=== PATIENT | male | born 1940 | race Caucasian/White ===

== ENCOUNTER 2020-04-05 08:24 | Emergency (ER) | payer MEDICARE, OTHER ==
[2020-04-05 08:59] LABS: #Basophils 0.1 thou/uL (0.0-0.2); #Eosinphils 0.2 thou/uL (0.0-0.7); #Lymphocytes 1.9 thou/uL (1.20-3.40); #Monocytes 0.5 thou/uL (0.11-0.59); #Neutrophils 5.2 thou/uL (1.40-6.50); %Basophils 0.9 % (0.0-1.0); %Lymphocytes 24.2 % (21.0-51.0); %Monocytes 5.8 % (0.0-10.0); %Neutrophils 67.1 % (42.0-75.0); Hemoglobin 15.4 g/dL (14.0-18.0); Mean Corpuscular HGB CONC 34.4 g/dL (32.0-36.0); Mean Corpuscular Hemoglobin 32.6 pg (27.0-31.0); Mean Corpuscular Volume 94.7 fL (78.0-98.0); Mean Platelet Volume 8.5 fL (7.4-10.4); Platelet Count 217 thou/uL (130-400); RBC Distribution Width 11.9 % (11.5-14.5); Red Blood Cell (RBC) Count 4.72 mill/uL (4.70-6.10); White Blood Cell (WBC) Count 7.7 thou/uL (4.8-10.8)
--- NOTE | 2020-04-05 09:06 | RAD ---
Chest AP view INDICATION: Jaw pain and chest pain COMPARISON: None FINDINGS: Lungs: The lungs are clear Cardiac silhouette: Mild cardiomegaly with post CABG change Pulmonary vasculature: Normal Pleural spaces: No pleural effusion or pneumothorax is demonstrated. Upper abdomen: Focal eventration of the right hemidiaphragm. Osseous structures: There is scattered degenerative and osteoarthritic change present. Additional findings: None. IMPRESSION: Mild cardiomegaly with post CABG change. No evidence to suggest cardiac decompensation. No acute airs pace consolidation to suggest pneumonia. No pleural effusion or pneumothorax identified.
[2020-04-05 09:21] LABS: ALT (SGPT) 10 U/L (8-55); AST (SGOT) 16 U/L (5-34); Albumin 4.4 g/dL (3.4-4.8); Alkaline Phosphatase 82 U/L (40-110); Anion Gap 16 mmol/L (10-20); BUN (Urea Nitrogen) 26 mg/dL (8.4-25.7); Bilirubin, Total 0.5 mg/dL (0.2-1.2); CK (CPK) 45 U/L (30-200); Calc. Creatinine Clearance 0 mL/min (70-130); Calcium 9.4 mg/dL (7.8-10.44); Carbon Dioxide 26 mmol/L (23-31); Chloride 104 mmol/L (98-107); Estimated GFR-MDRD 37; Globulin 3.4 g/dL (2.4-3.5); Glucose 232 mg/dL (83-110); Lipase 32 U/L (8-78); Potassium 4.9 mmol/L (3.5-5.1); Protein, Total 7.8 g/dL (5.8-8.1); Sodium 141 mmol/L (136-145)
[2020-04-05 09:42] LABS: CKMB 1.8 ng/mL (0-6.6)
[2020-04-05 09:59] LABS: Prothrombin Time 13.4 sec (12.0-14.7)
[2020-04-05 10:00] LABS: PTT 33.8 sec (22.9-36.1)
[2020-04-05] MEDS ORDERED: Enoxaparin Sodium 80 MG/0.8 ML SYRINGE ONE (10:31)
== END 2020-04-05 14:52 | disposition short-term general hospital (02) ==
LOC: ERS 08:24
DX: I21.4 Non-ST elevation (NSTEMI) myocardial infarction (principal); D64.9 Anemia, unspecified; E11.9 Type 2 diabetes mellitus without complications; I10 Essential (primary) hypertension
CPT/HCPCS: 36415; 36416; 71045; 80053; 82550; 82553; 83690; 84484; 85025; 85610; 85730; 93005; 96372; J1650

== ENCOUNTER 2020-04-26 12:55 | Inpatient (IN) | payer OTHER ==
--- NOTE | 2020-04-26 13:48 | RAD ---
Chest one view HISTORY: Dyspnea. Syncope. FINDINGS: Cardiac silhouette is magnified by projection. Pulmonary vasculature are unremarkable. Mediastinum is midline with postoperative changes and aortic calcification. Subtle widespread is linear parenchymal opacity involving each lung is stable and likely related to i nterstitial scarring. No lobar consolidation or evidence of pneumothorax. IMPRESSION : Atherosclerosis. Chronic-type findings are stable. No active cardiopulmonary abnormalities are demonstrated.
[2020-04-26 14:06] LABS: #Basophils 0.1 thou/uL (0.0-0.2); #Eosinphils 0.2 thou/uL (0.0-0.7); #Lymphocytes 1.6 thou/uL (1.20-3.40); #Monocytes 0.5 thou/uL (0.11-0.59); #Neutrophils 5.5 thou/uL (1.40-6.50); %Eosinophils 2.5 % (0.0-10.0); %Lymphocytes 20.8 % (21.0-51.0); %Monocytes 6.2 % (0.0-10.0); %Neutrophils 69.5 % (42.0-75.0); Hemoglobin 14.8 g/dL (14.0-18.0); Mean Corpuscular HGB CONC 34.7 g/dL (32.0-36.0); Mean Corpuscular Hemoglobin 32.3 pg (27.0-31.0); Mean Corpuscular Volume 92.9 fL (78.0-98.0); Mean Platelet Volume 8.5 fL (7.4-10.4); Platelet Count 211 thou/uL (130-400); RBC Distribution Width 11.8 % (11.5-14.5); Red Blood Cell (RBC) Count 4.58 mill/uL (4.70-6.10); White Blood Cell (WBC) Count 7.9 thou/uL (4.8-10.8)
[2020-04-26 14:31] LABS: ALT (SGPT) 14 U/L (8-55); AST (SGOT) 14 U/L (5-34); Albumin 4.3 g/dL (3.4-4.8); Alkaline Phosphatase 74 U/L (40-110); Anion Gap 16 mmol/L (10-20); BUN (Urea Nitrogen) 28 mg/dL (8.4-25.7); Bilirubin, Total 0.6 mg/dL (0.2-1.2); Calc. Creatinine Clearance 0 mL/min (70-130); Calcium 9.6 mg/dL (7.8-10.44); Carbon Dioxide 23 mmol/L (23-31); Chloride 104 mmol/L (98-107); Estimated GFR-MDRD 36; Globulin 3.1 g/dL (2.4-3.5); Glucose 205 mg/dL (83-110); Potassium 4.5 mmol/L (3.5-5.1); Protein, Total 7.4 g/dL (5.8-8.1); Sodium 138 mmol/L (136-145)
[2020-04-26 17:13] LABS: Troponin I 0.027 ng/mL (< 0.028)
[2020-04-26] MEDS ORDERED: Dextrose 50% Abboject 50 ML SYRINGE SLOW IVP PRN (17:40)
[2020-04-26] MEDS ORDERED: Acetaminophen 325 MG TAB PO PRN (17:40)
[2020-04-26] MEDS ORDERED: Ondansetron ODT 4 MG TAB PO PRN (17:40)
[2020-04-26] MEDS ORDERED: Senokot S 8.6-50 MG TAB PO PRN (17:40)
[2020-04-26] MEDS ORDERED: Acetaminophen 650 MG Suppository PR PRN (17:40)
[2020-04-26] MEDS ORDERED: Guaifenesin DM 100-10/5 ML UDCUP PO PRN (17:40)
[2020-04-26] MEDS ORDERED: Ondansetron PF 4 MG/2 ML Vial IVP PRN (17:40)
[2020-04-26] MEDS ORDERED: Dextrose 5% in Water 1,000 ML IV PRN (17:40)
[2020-04-26 18:46] VITALS: BMI 29.0
--- NOTE | 2020-04-26 19:21 | HP ---
PRIMARY CARE PHYSICIAN: EFREN. CHIEF COMPLAINT: Lightheadedness and dizziness. HISTORY OF PRESENT ILLNESS: This is an 79-year-old white male with a known history of coronary artery disease status post CABG x2, who had an NSTEMI back in the beginning of April, manifesting with pain in his jaw. He was transferred from our ER to the [facility] for an elevated troponin. There, he reportedly had a catheterization with angioplasty done. I am not certain if he ended up leaving AMA or they discharged him, but then later he was told he needed to come back to get a stent placed. However, patient did not want to go back to the [place] since they did not place a stent at that time and he was going to go and see his daughter's search engine optimization manager in [place] this coming Wednesday. Yesterday patient in the early evening started getting some lightheadedness and dizziness when he would stand up. He said it was not vertigo like his Meniere's disease usually causes, but he felt like he might be going to pass out, he would also get some upset stomach, mild nausea at that time. If he sat down, it will get a little better and if he lay down the symptoms would go away completely. These symptoms had been persistent since then. They have not been severe. He has not actually passed out. He has had no chest pain, which he does usually have with cardiac issues, but also no jaw pain, which he has had with previous heart attacks. He did break out into a little bit of a sweat today. Eventually, the patient decided to come in to make sure he was not developing another heart attack. In the ER the patient had negative troponin and normal vital signs and so he is being put in observation due to his recent cardiac history. REVIEW OF SYSTEMS: CONSTITUTIONAL: No fevers. No chills. EYES: No double vision or blurred vision. ENT: No congestion, drainage or sore throat. He has chronic poor hearing that comes and goes in intensity, but no specific worsening over the last couple of days. CARDIOVASCULAR: No chest pain. He does get intermittent palpitations. This is chronic for him. PULMONARY: He has an occasional cough from allergies, which is chronic. Nothing worse recently. No wheezing. No shortness of breath. GASTROINTESTINAL: See HPI. No vomiting. No diarrhea or constipation. No abdominal pain. GENITOURINARY: No dysuria or hematuria. MUSCULOSKELETAL: No muscle aches or joint pains. SKIN: No rashes or other lesions that are new that he has noticed. NEUROLOGIC: He has bilateral tingling below his knees on and off that he chalks up to his diabetes. This has not gotten worse recently. No focal weakness or new neurologic symptoms. PAST MEDICAL HISTORY: 1. Coronary artery disease, status post bypass x2. 2. Hyperlipidemia, intolerant to statins. 3. Hypertension. 4. Diabetes mellitus, insulin dependent. 5. Meniere's disease with intermittent vertigo. 6. Anemia. PAST SURGICAL HISTORY: 1. CABG in 2001 with repeat CABG in 2013. 2. Adenoidectomy. 3. Cholecystectomy. 4. Tonsillectomy. SOCIAL HISTORY: The patient has never smoked. No illicit drug use. He drinks a small glass of red wine once a day. He lives by himself. His medical power of litigation attorney associate are his daughters, Brigette Day and Keshia Sampson and he is a full code. 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 FAMILY HISTORY: No significant family medical history. ALLERGIES: 1. TETRACYCLINE CAUSES A RASH. 2. STATINS CAUSE MUSCLE ACHES AND WEAKNESS. CURRENT MEDICATIONS: 1. Aspirin 81 mg daily. 2. Plavix 75 mg daily. 3. NPH insulin dose adjusted based on his blood sugar, usually anywhere between 4 and 8 units 3 times a day. PHYSICAL EXAMINATION: VITAL SIGNS: Blood pressure 125/95, pulse 75, respirations 16, temperature 98.8, O2 saturation 100% on room air. GENERAL: This is a well-developed obese white male, in no acute distress. HEENT: Pupils equal, round, and reactive to light. Oropharynx clear without lesions, erythema, or exudate. NECK: Supple. No lymphadenopathy. No thyroid nodules or enlargement. No JVD. HEART: Regular rate and rhythm. No murmurs, rubs, or gallops. LUNGS: Clear to auscultation bilaterally. No wheezes, crackles, or rhonchi. ABDOMEN: Soft, nontender to palpation. Normoactive bowel sounds. No hepatosplenomegaly or other masses. EXTREMITIES: No clubbing, cyanosis, or edema. SKIN: No rashes or other lesions noted. NEUROLOGIC: The patient moves all extremities equally. No facial droop. His gait is fairly stable. He does take small steps and moves carefully. LABORATORY DATA: CBC without significant abnormalities. Complete metabolic panel is notable for BUN of 28, a creatinine of 1.82, which is up from earlier this month from 1.77, but relatively stable. Glucose of 205. The rest was normal. Troponin was negative x1. EKG done in the emergency room showed likely normal sinus rhythm at 82 beats per minute. The P waves were not easily visible; however, it was regular and given the rate is likely an atrial rhythm. There was some left axis deviation. There was no ST-segment elevation or depression. No T-wave inversions. No other ischemic changes I have reviewed the chest x-ray done in the emergency room along with the radiologist's report does show atherosclerosis and chronic type changes to the lungs, likely related to interstitial scarring without any acute cardiopulmonary process visualized. ASSESSMENT: 1. Presyncopal episodes. These might possibly be cardiac in origin given his recent non-ST elevated myocardial infarction. We will observe the patient in the hospital overnight and check for any elevation in his troponin. We will get orthostatic vital signs and we will consult Cardiology in the morning. The patient if he is stable be able to be followed up in the outpatient clinic or if he has a progression of his symptoms he may need intervention here. [facility] and procedures. 2. Coronary artery disease with 2 previous coronary artery bypass graftings. 3. Hyperlipidemia, unable to take statins. 4. Hypertension. We will find out patient's home blood pressure medications and resume. 5. Chronic kidney disease, uncertain baseline, but he may be near it now. We will recheck his creatinine the morning after fluids given in the emergency room. 6. Diabetes mellitus, insulin dependent. We will start patient on 4 units of NPH three times a day right now with a low insulin sliding scale and we will increase as needed. 7. Gastrointestinal prophylaxis. The patient on Pepcid twice a day. 8. Deep venous thrombosis prophylaxis. The patient on Lovenox and sequential compression devices while in bed. CODE STATUS: The patient is full code. Should he be incapacitated, his daughters would be his medical decision makers. Their names are Brigette Day and Keshia Sampson. Job ID: [id number] [facility]
[2020-04-26 20:10] LABS: Troponin I 0.048 ng/mL (< 0.028)
[2020-04-26] MEDS: Famotidine 20 MG TAB PO SCH (21:09)
[2020-04-26] MEDS: NPH, Human Insulin Isophane 300 UNIT/3 ML VIAL SC SCH (21:09)
[2020-04-26] MEDS: HumaLOG 300 UNITS/3 ML VIAL SC PRN (21:10)
[2020-04-27 04:24] LABS: #Basophils 0.1 thou/uL (0.0-0.2); #Eosinphils 0.2 thou/uL (0.0-0.7); #Lymphocytes 1.6 thou/uL (1.20-3.40); #Monocytes 0.5 thou/uL (0.11-0.59); #Neutrophils 3.4 thou/uL (1.40-6.50); %Eosinophils 3.7 % (0.0-10.0); %Lymphocytes 27.2 % (21.0-51.0); %Monocytes 9.1 % (0.0-10.0); %Neutrophils 59.1 % (42.0-75.0); Hemoglobin 13.7 g/dL (14.0-18.0); Mean Corpuscular HGB CONC 34.9 g/dL (32.0-36.0); Mean Corpuscular Hemoglobin 33.3 pg (27.0-31.0); Mean Corpuscular Volume 95.4 fL (78.0-98.0); Mean Platelet Volume 8.2 fL (7.4-10.4); Platelet Count 191 thou/uL (130-400); RBC Distribution Width 11.8 % (11.5-14.5); Red Blood Cell (RBC) Count 4.11 mill/uL (4.70-6.10); White Blood Cell (WBC) Count 5.7 thou/uL (4.8-10.8)
[2020-04-27 04:48] LABS: Anion Gap 12 mmol/L (10-20); BUN (Urea Nitrogen) 25 mg/dL (8.4-25.7); Calc. Creatinine Clearance 53 mL/min (70-130); Calcium 9.2 mg/dL (7.8-10.44); Carbon Dioxide 24 mmol/L (23-31); Cardiac Risk 6.2 (Less than 4.5); Chloride 107 mmol/L (98-107); Cholesterol 179 mg/dl (< 200 Desired); Estimated GFR-MDRD 43; Glucose 158 mg/dL (83-110); HDL Cholesterol 29 mg/dL (>60 Neg Risk); LDL Cholesterol, Calculated 125 mg/dL; Potassium 4.5 mmol/L (3.5-5.1); Sodium 138 mmol/L (136-145); Triglycerides 123 mg/dL (Less than 150)
--- NOTE | 2020-04-27 07:46 | PDOC.HOSPP ---
- Subjective Encounter Date: 04/27/20 Encounter Time: 10:00 Subjective: Patient with improved lightheadedness but still there. Was able to ambulate with PT. No drop in BP with orthostatics. No jaw pain. - Objective Vital Signs & Weight: Vital Signs (12 hours) Temp Pulse Resp BP BP BP Pulse Ox 04/27/20 04:38 97.7 F 58 L 16 142/66 H 100 04/27/20 00:00 118/63 04/26/20 21:00 97.7 F 73 16 136/74 142/76 H 132/64 100 Weight Weight 220 lb 3.2 oz Result Diagrams: 04/27/20 04:13 04/27/20 04:13 Additional Labs: Accuchecks 04/27/20 06:29 POC Glucose 129 H Hospitalist ROS - Review of Systems Constitutional: denies: fever, sweats Respiratory: denies: cough, shortness of breath Cardiovascular: denies: chest pain, palpitations Gastrointestinal: denies: nausea, vomiting, abdominal pain - Medication Medications: Active Medications Generic Name Dose Route Start Last Admin Trade Name Freq PRN Reason Stop Dose Admin Famotidine 20 mg 04/26/20 21:00 04/26/20 21:09 Famotidine 20 Mg Tab PO 20 mg BID TYSON Administration Insulin Human Lispro 0 units 04/26/20 17:40 04/26/20 21:10 Humalog 300 Units/3 Ml Vial SC 3 unit .BEDTIME SLIDING SC PRN Administration Bedtime Correctional Scale Insulin Human NPH 4 unit 04/26/20 21:00 04/26/20 21:09 Nph, Human Insulin Isophane 300 Unit/3 Ml Vial SC 4 unit TID TYSON Administration - Exam General Appearance: NAD, awake alert ENT: moist mucosa Heart: RRR, no murmur, no gallops, no rubs, normal peripheral pulses Respiratory: CTAB, no wheezes, no rales, no ronchi Gastrointestinal: soft, non-tender, non-distended, normal bowel sounds Psychiatric: normal affect, normal behavior, A&O x 3 Hosp A/P (1) Pre-syncope Status: Acute (2) CAD (coronary artery disease) of artery bypass graft Code(s): I25.810 - ATHEROSCLEROSIS OF CABG W/O ANGINA PECTORIS Status: Chronic (3) HLD (hyperlipidemia) Code(s): E78.5 - HYPERLIPIDEMIA, UNSPECIFIED Status: Chronic (4) HTN (hypertension) Code(s): I10 - ESSENTIAL (PRIMARY) HYPERTENSION Status: Chronic (5) Chronic renal disease Code(s): N18.9 - CHRONIC KIDNEY DISEASE, UNSPECIFIED Status: Chronic Qualifiers: Chronic kidney disease stage: unspecified stage Qualified Code(s): N18.9 - Chronic kidney disease, unspecified (6) Diabetes mellitus, insulin dependent (IDDM), controlled Code(s): NWD9583 - Status: Chronic - Plan Patient's last troponin bumped to indeterminate. Will make NPO and await Dr. Wang's evaluation. Possible stress test vs. repeat cath. [facility]. Creatinine improving some this AM. Blood sugars well controlled. DVT proph: Lovenox GI proph: Famotidine
[2020-04-27 12:02] LABS: SARS-CoV-2 MS2 Positive; SARS-CoV-2 N Gene Negative; SARS-CoV-2 S Gene Negative; SARS-CoV-2 by NAA Not Detected (NotDetected); SARS-CoV-2 orf1ab Negative
[2020-04-27] MEDS: NPH, Human Insulin Isophane 300 UNIT/3 ML VIAL SC SCH ×3 (12:05→20:58)
--- NOTE | 2020-04-27 17:50 | CON ---
DATE OF CONSULTATION: 04/27/2020 REASON FOR CONSULTATION: Angina and coronary artery disease. HISTORY OF PRESENT ILLNESS: Mr. Powell is a pleasant 79-year-old white gentleman who comes to the hospital for lightheadedness, dizziness, and jaw pain. He has significant history of coronary artery disease with bypass twice, the last time was in 2013, he has 2 bypasses. He had a non-STEMI at the beginning of the month; at which point he came to the ER and since he is a and has [facility] privileges, he was transferred to the [place] for further care. Over there, he apparently received a heart catheterization through his left radial artery and they took pictures and were unable to intervene on one of his arteries and he states that he has spent on the table about 3 hours, maybe 4 hours, and then he was told that he had to come back about a month after for repeat catheterization to put actual stent in there. He ended up leaving [facility] as he was not happy with the results. According to the daughter, there was an angioplasty done to one artery, but they could not get a stent placed. It is unclear on the details of this situation. He states that he was about to see a label rewinder in [place], just to have this worked up in a different non-[place] facility. However, he felt lightheaded and a little bit of jaw pain which is the same sensation he had when he had his non-STEMI, so he decided to come in for further evaluation. On my evaluation, he is doing much better. He feels back to baseline. PAST MEDICAL HISTORY: 1. Coronary artery disease, status post bypass several years back in 2001 and again in 2013. Apparently, CABG x2 at that time. 2. Hyperlipidemia. 3. Intolerance to statin drugs. 4. Hypertension. 5. Type 2 diabetes, on insulin. 6. Meniere disease. 7. Anemia. PAST SURGICAL HISTORY: 1. CABG in 2001 and redo CABG in 2014. 2. Adenoidectomy. 3. Cholecystectomy. 4. Tonsillectomy. SOCIAL HISTORY: No tobacco or drugs. Social alcohol use. Lives here in town on his own. Has 2 daughters who live in [place]. FAMILY HISTORY: Noncontributory. OUTPATIENT MEDICATIONS: 1. Aspirin 81 mg a day. 2. Plavix 75 mg a day. 3. NPH insulin. ALLERGIES: 1. TETRACYCLINE CAUSES A RASH. 2. STATINS CAUSE MUSCLE ACHES AND WEAKNESS. REVIEW OF SYSTEMS: A 12-point review of systems was done and was found to be negative other than stated in the History of Present Illness. PHYSICAL EXAMINATION: VITAL SIGNS: Temperature 98.1, pulse 80, respiratory rate 18 saturating 100% on room air, and blood pressure 126/72. GENERAL: Awake, alert, oriented x3, in no distress. HEENT: Normocephalic, atraumatic. NECK: Supple. LUNGS: Clear. CARDIOVASCULAR: S1 and S2. No S3 or S4. No murmurs. No rubs. ABDOMEN: Soft. Positive bowel sounds. EXTREMITIES: No edema. SKIN: Warm and dry. LABORATORY DATA: Laboratory work was reviewed. White count of 7, hemoglobin 14.8, hematocrit 42, and platelet count 211. Chemistries are unremarkable. Creatinine is 1.56. This is actually down from 1.82. Troponin was 0.02, then 0.04, then 0.02 again. Cholesterol total of 179, LDL of 125, and HDL of 29. COVID-19 PCR was not detected. Chest x-ray was reviewed and showed atherosclerosis with chronic type stable findings. ASSESSMENT: 1. Chronic stable angina. 2. Lightheadedness and dizziness. This is his coronary equivalent. 3. Recent non-ST elevation myocardial infarction. 4. Status post coronary artery bypass grafting x2 more recently in 2013. PLAN: 1. Mr. Powell is concerned that he is having symptoms from coronary artery disease as he has let it go for too long in the past and that is how he got a worse trouble than, he feels, he should have been in the past. He would like to be revascularized as he feels his symptoms are getting worse. I would have to agree if this is the same symptoms he had back when he needed bypass and more recently when he had a non-STEMI, more likely he is having symptoms from his coronary artery disease. We spoke with him about at length with risks and benefits of a heart catheterization and possible stenting and he agrees to proceed. He states he is ready. He has had this done very recently. My biggest concern in him would be his renal function. His creatinine was 1.5 when he came in and it is down to 1.3. We will try to hydrate him some as well. 2. We will get an echocardiogram. 3. No longer lightheaded or dizzy. 4. Plan on heart catheterization on Wednesday after hydration. Thank you for letting us to participate in the care of your patient. We will follow. Job ID: [id number]
[2020-04-27] MEDS: Enoxaparin Sodium 40 MG/0.4 ML SYRINGE SC SCH (18:06)
[2020-04-27] MEDS: Clopidogrel Bisulfate 75 MG TAB PO SCH (18:06)
[2020-04-27] MEDS: Aspirin 81 mg Enteric Coated Tablet PO SCH (18:06)
[2020-04-27] MEDS: Famotidine 20 MG TAB PO SCH ×2 (18:06→20:52)
[2020-04-27] MEDS: HumaLOG 300 UNITS/3 ML VIAL SC PRN ×2 (18:08→20:58)
[2020-04-28 04:40] LABS: Anion Gap 14 mmol/L (10-20); BUN (Urea Nitrogen) 34 mg/dL (8.4-25.7); Calc. Creatinine Clearance 51 mL/min (70-130); Calcium 9.7 mg/dL (7.8-10.44); Carbon Dioxide 22 mmol/L (23-31); Chloride 104 mmol/L (98-107); Estimated GFR-MDRD 41; Glucose 200 mg/dL (83-110); Potassium 4.4 mmol/L (3.5-5.1); Sodium 136 mmol/L (136-145)
[2020-04-28] MEDS: HumaLOG 300 UNITS/3 ML VIAL SC PRN ×2 (05:50→12:52)
--- NOTE | 2020-04-28 07:57 | PDOC.HOSPP ---
- Subjective Encounter Date: 04/28/20 Encounter Time: 09:30 Subjective: No new complaints. Light headedness improved but still present. - Objective Vital Signs & Weight: Vital Signs (12 hours) Temp Pulse Resp BP BP Pulse Ox 04/28/20 07:40 98.5 F 60 16 118/59 L 99 04/28/20 03:21 97.6 F 63 16 133/63 100 04/27/20 23:58 97.6 F 67 15 118/56 L 98 Weight Weight 191 lb I&O: 04/27/20 04/28/20 04/29/20 06:59 06:59 06:59 Intake Total 480 Output Total 1700 Balance -1220 Result Diagrams: 04/27/20 04:13 04/28/20 03:59 Additional Labs: Accuchecks 04/28/20 04/27/20 04/27/20 05:38 20:06 17:36 POC Glucose 191 H 267 H 170 H 04/27/20 04/26/20 11:13 13:11 POC Glucose 97 294 H Radiology Reviewed by me: Yes (ECHO with preserved EF, diastolic function indeterminate) Hospitalist ROS - Review of Systems Constitutional: denies: fever, chills Respiratory: denies: cough, shortness of breath Cardiovascular: denies: chest pain, palpitations Gastrointestinal: denies: nausea, vomiting - Medication Medications: Active Medications Generic Name Dose Route Start Last Admin Trade Name Freq PRN Reason Stop Dose Admin Aspirin 81 mg 04/27/20 09:00 04/27/20 18:06 Aspirin 81 Mg Enteric Coated Tablet PO 81 mg DAILY TYSON Administration Clopidogrel Bisulfate 75 mg 04/27/20 09:00 04/27/20 18:06 Clopidogrel Bisulfate 75 Mg Tab PO 75 mg DAILY TYSON Administration Enoxaparin Sodium 40 mg 04/27/20 09:00 04/27/20 18:06 Enoxaparin Sodium 40 Mg/0.4 Ml Syringe SC 40 mg 0900 TYSON Administration Famotidine 20 mg 04/26/20 21:00 04/27/20 20:52 Famotidine 20 Mg Tab PO Not Given BID TYSON Insulin Human Lispro 0 units 04/26/20 17:40 04/28/20 05:50 Humalog 300 Units/3 Ml Vial SC 2 unit .MILD SLIDING SCALE PRN Administration Mild Correctional Scale Insulin Human Lispro 0 units 04/26/20 17:40 04/27/20 20:58 Humalog 300 Units/3 Ml Vial SC 3 unit .BEDTIME SLIDING SC PRN Administration Bedtime Correctional Scale Insulin Human NPH 4 unit 04/26/20 21:00 04/27/20 20:58 Nph, Human Insulin Isophane 300 Unit/3 Ml Vial SC 4 unit TID TYSON Administration - Exam General Appearance: NAD, awake alert ENT: moist mucosa Heart: RRR, no murmur, no gallops, no rubs Respiratory: CTAB, no wheezes, no rales, no ronchi Gastrointestinal: soft, non-tender, non-distended, normal bowel sounds Psychiatric: normal affect, normal behavior, A&O x 3 Hosp A/P (1) Pre-syncope Status: Acute (2) CAD (coronary artery disease) of artery bypass graft Code(s): I25.810 - ATHEROSCLEROSIS OF CABG W/O ANGINA PECTORIS Status: Chronic (3) HLD (hyperlipidemia) Code(s): E78.5 - HYPERLIPIDEMIA, UNSPECIFIED Status: Chronic (4) HTN (hypertension) Code(s): I10 - ESSENTIAL (PRIMARY) HYPERTENSION Status: Chronic (5) Chronic renal disease Code(s): N18.9 - CHRONIC KIDNEY DISEASE, UNSPECIFIED Status: Chronic Qualifiers: Chronic kidney disease stage: unspecified stage Qualified Code(s): N18.9 - Chronic kidney disease, unspecified (6) Diabetes mellitus, insulin dependent (IDDM), controlled Code(s): YXS2103 - Status: Chronic - Plan Patient's last troponin bumped to indeterminate. Dr. Wang concerned that pat ient's dizziness is an anginal equivalent. Plan on cath on Wednesday. Attempt to obtain records from the [place]. Creatinine back up today. Will give gentle fluids in preparation for cath tomorrow. Blood sugars well controlled. DVT proph: Lovenox GI proph: Famotidine
[2020-04-28] MEDS ORDERED: Sodium Chloride 0.9% 1,000 ML IV SCH (08:00)
[2020-04-28] MEDS: Famotidine 20 MG TAB PO SCH ×2 (09:54→20:39)
[2020-04-28] MEDS: NPH, Human Insulin Isophane 300 UNIT/3 ML VIAL SC SCH ×3 (09:55→20:39)
[2020-04-28] MEDS: Clopidogrel Bisulfate 75 MG TAB PO SCH (09:55)
[2020-04-28] MEDS: Aspirin 81 mg Enteric Coated Tablet PO SCH (09:55)
[2020-04-28] MEDS: Enoxaparin Sodium 40 MG/0.4 ML SYRINGE SC SCH (09:55)
--- NOTE | 2020-04-28 16:21 | PDOC.CPN ---
- Subjective Date: 04/28/20 Time: 16:20 Interval history: No new issues. No more dizziness, no more chest pain. - Review of Systems General: denies: fever/chills, weight/appetite/sleep changes, night sweats, fatigue Respiratory: denies: cough, congestion, shortness of breath, exercise intolerance Cardiovascular: denies: chest pain, palpitation, edema, paroxysmal nocturnal dyspnea, orthopnea Gastrointestinal: denies: nausea, vomiting, diarrhea, constipation, abd pain, GI bleeding Musculoskeletal: denies: pain, tenderness, stiffness, swelling, arthriti s/arthralgias Neurological: denies: numbness, syncope, seizure, weakness - Objective Allergies/Adverse Reactions: Allergies Allergy/AdvReac Type Severity Reaction Status Date / Time tetracycline Allergy Verified 04/26/20 18:03 Visit Medications: Current Medications Acetaminophen (Acetaminophen 325 Mg Tab) 650 mg PO Q4H PRN PRN Reason: Headache/Fever/Mild Pain (1-3) Acetaminophen (Acetaminophen 650 Mg Suppository) 650 mg DC Q4H PRN PRN Reason: Headache/Fever/Mild Pain (1-3) Aspirin (Aspirin 81 Mg Enteric Coated Tablet) 81 mg PO DAILY [facility] Last Admin: 04/28/20 09:55 Dose: 81 mg Documented by: Clopidogrel Bisulfate (Clopidogrel Bisulfate 75 Mg Tab) 75 mg PO DAILY [facility] Last Admin: 04/28/20 09:55 Dose: 75 mg Documented by: Dextrose/Water (Dextrose 50% Abboject 50 Ml Syringe) 25 gm SLOW IVP PRN PRN PRN Reason: Hypoglycemia Enoxaparin Sodium (Enoxaparin Sodium 40 Mg/0.4 Ml Syringe) 40 mg SC 0900 [facility] Last Admin: 04/28/20 09:55 Dose: 40 mg Documented by: Famotidine (Famotidine 20 Mg Tab) 20 mg PO BID [facility] Last Admin: 04/28/20 09:54 Dose: 20 mg Documented by: Glucagon (Glucagon 1 Mg/Ml Vial) 1 mg IM PRN PRN PRN Reason: Hypoglycemia Guaifenesin/Dextromethorphan (Guaifenesin Dm 100-10/5 Ml Udcup) 15 ml PO Q4H PRN PRN Reason: Cough Dextrose/Water (D5w) 1,000 mls @ 0 mls/hr IV .Q0M PRN PRN Reason: Hypoglycemia Sodium Chloride (Normal Saline 0.9%) 1,000 mls @ 50 mls/hr IV .Q20H [facility] Last Admin: 04/28/20 10:11 Dose: 1,000 mls Documented by: Insulin Human Lispro (Humalog 300 Units/3 Ml Vial) 0 units SC .MILD SLIDING SCALE PRN PRN Reason: Mild Correctional Scale Last Admin: 04/28/20 12:52 Dose: 3 unit Documented by: Insulin Human Lispro (Humalog 300 Units/3 Ml Vial) 0 units SC .BEDTIME SLIDING SC PRN PRN Reason: Bedtime Correctional Scale Last Admin: 04/27/20 20:58 Dose: 3 unit Documented by: Insulin Human NPH (Nph, Human Insulin Isophane 300 Unit/3 Ml Vial) 4 unit SC TID [facility] Last Admin: 04/28/20 14:44 Dose: 4 unit Documented by: Ondansetron HCl (Ondansetron Odt 4 Mg Tab) 4 mg PO Q6H PRN PRN Reason: Nausea/Vomiting Ondansetron HCl (Ondansetron Pf 4 Mg/2 Ml Vial) 4 mg IVP Q6H PRN PRN Reason: Nausea/Vomiting Senna/Docusate Sodium (Senokot S 8.6-50 Mg Tab) 2 tab PO BID PRN PRN Reason: Constipation Vital Signs & Weight: Vital Signs Temp Pulse Resp BP BP Pulse Ox 04/28/20 12:52 98.8 F 68 16 152/70 H 99 04/28/20 09:55 100 04/28/20 07:40 98.5 F 60 16 118/59 L 99 Weight 191 lb - Physical Exam General: alert & oriented x3 HEENT: mucus membranes moist Neck: supple neck Cardiac: regular rate and rhythm, no murmur Lungs: normal breath sounds Neuro: no lateralizing findings Abdomen: active bowel sounds Extremities: no edema Skin: clear Musculoskeletal: no pain - Labs Result Diagrams: 04/27/20 04:13 04/28/20 03:59 Troponin/CKMB Troponin I 0.028 ng/mL (< 0.028) 04/27/20 14:05 - Telemetry Sinus rhythms and dysrhythmias: sinus rhythm - Assessment/Plan Assessment/Plan: 1. Chronic stable angina 2. Recent NSTEMI with incomplete revascularization. 3. S/P CABG x 2 in 2013 PLAN: - Will do [facility] tomorrow to assess any further need for revascularization.
[2020-04-28] MEDS ORDERED: Communication Order-Pharmacy FS SCH (16:30)
[2020-04-29] MEDS ORDERED: Sodium Chloride 0.9% 500 ML IV SCH (00:01)
[2020-04-29 04:24] LABS: #Basophils 0.1 thou/uL (0.0-0.2); #Eosinphils 0.1 thou/uL (0.0-0.7); #Lymphocytes 1.2 thou/uL (1.20-3.40); #Monocytes 0.5 thou/uL (0.11-0.59); #Neutrophils 3.3 thou/uL (1.40-6.50); %Basophils 1.3 % (0.0-1.0); %Eosinophils 2.8 % (0.0-10.0); %Lymphocytes 23.1 % (21.0-51.0); %Monocytes 10.1 % (0.0-10.0); %Neutrophils 62.7 % (42.0-75.0); Hemoglobin 13.8 g/dL (14.0-18.0); Mean Corpuscular HGB CONC 34.6 g/dL (32.0-36.0); Mean Corpuscular Hemoglobin 32.7 pg (27.0-31.0); Mean Corpuscular Volume 94.7 fL (78.0-98.0); Mean Platelet Volume 8.5 fL (7.4-10.4); Platelet Count 178 thou/uL (130-400); RBC Distribution Width 11.7 % (11.5-14.5); Red Blood Cell (RBC) Count 4.22 mill/uL (4.70-6.10); White Blood Cell (WBC) Count 5.2 thou/uL (4.8-10.8)
[2020-04-29 04:45] LABS: Anion Gap 13 mmol/L (10-20); BUN (Urea Nitrogen) 31 mg/dL (8.4-25.7); Calc. Creatinine Clearance 43 mL/min (70-130); Calcium 8.8 mg/dL (7.8-10.44); Carbon Dioxide 21 mmol/L (23-31); Chloride 107 mmol/L (98-107); Estimated GFR-MDRD 40; Glucose 180 mg/dL (83-110); Potassium 4.4 mmol/L (3.5-5.1); Sodium 137 mmol/L (136-145)
[2020-04-29] MEDS: Clopidogrel Bisulfate 75 MG TAB PO SCH (05:40)
[2020-04-29] MEDS: Aspirin 81 mg Enteric Coated Tablet PO SCH (05:40)
[2020-04-29] MEDS: Famotidine 20 MG TAB PO SCH ×2 (05:40→20:45)
[2020-04-29] MEDS: NPH, Human Insulin Isophane 300 UNIT/3 ML VIAL SC SCH ×3 (05:41→20:46)
--- NOTE | 2020-04-29 07:38 | PDOC.HOSPP ---
- Subjective Encounter Date: 04/29/20 Encounter Time: 09:00 Subjective: Patient feeling better. Less lightheadedness. Awaiting cath this AM. - Objective Vital Signs & Weight: Vital Signs (12 hours) Temp Pulse Resp BP BP Pulse Ox 04/29/20 04:00 98.3 F 53 L 15 145/66 H 96 04/28/20 20:00 98.2 F 68 12 124/60 97 Weight Weight 218 lb 4.8 oz I&O: 04/28/20 04/29/20 04/30/20 06:59 06:59 06:59 Intake Total 480 2660 Output Total 1700 1000 Balance -1220 1660 Result Diagrams: 04/29/20 04:14 04/29/20 04:14 Additional Labs: Accuchecks 04/29/20 04/28/20 04/28/20 05:54 20:26 16:54 POC Glucose 137 H 200 H 105 H 04/28/20 11:41 POC Glucose 217 H Hospitalist ROS - Review of Systems Constitutional: denies: fever, chills Respiratory: denies: cough, shortness of breath Cardiovascular: denies: chest pain, palpitations Gastrointestinal: denies: nausea, vomiting, abdominal pain - Medication Medications: Active Medications Generic Name Dose Route Start Last Admin Trade Name Freq PRN Reason Stop Dose Admin Aspirin 81 mg 04/27/20 09:00 04/29/20 05:40 Aspirin 81 Mg Enteric Coated Tablet PO 81 mg DAILY TYSON Administration Clopidogrel Bisulfate 75 mg 04/27/20 09:00 04/29/20 05:40 Clopidogrel Bisulfate 75 Mg Tab PO 75 mg DAILY TYSON Administration Famotidine 20 mg 04/26/20 21:00 04/29/20 05:40 Famotidine 20 Mg Tab PO 20 mg BID TYSON Administration Insulin Human Lispro 0 units 04/26/20 17:40 04/28/20 12:52 Humalog 300 Units/3 Ml Vial SC 3 unit .MILD SLIDING SCALE PRN Administration Mild Correctional Scale Insulin Human Lispro 0 units 04/26/20 17:40 04/27/20 20:58 Humalog 300 Units/3 Ml Vial SC 3 unit .BEDTIME SLIDING SC PRN Administration Bedtime Correctional Scale Insulin Human NPH 4 unit 04/26/20 21:00 04/29/20 05:41 Nph, Human Insulin Isophane 300 Unit/3 Ml Vial SC Not Given TID TYSON - Exam General Appearance: NAD, awake alert ENT: moist mucosa Heart: RRR, no murmur, no gallops, no rubs Respiratory: CTAB, no wheezes, no rales, no ronchi Gastrointestinal: soft, non-tender, non-distended, normal bowel sounds Psychiatric: normal affect, normal behavior, A&O x 3 Hosp A/P (1) Pre-syncope Status: Acute (2) CAD (coronary artery disease) of artery bypass graft Code(s): I25.810 - ATHEROSCLEROSIS OF CABG W/O ANGINA PECTORIS Status: Chronic (3) HLD (hyperlipidemia) Code(s): E78.5 - HYPERLIPIDEMIA, UNSPECIFIED Status: Chronic (4) HTN (hypertension) Code(s): I10 - ESSENTIAL (PRIMARY) HYPERTENSION Status: Chronic (5) Chronic renal disease Code(s): N18.9 - CHRONIC KIDNEY DISEASE, UNSPECIFIED Status: Chronic Qualifiers: Chronic kidney disease stage: unspecified stage Qualified Code(s): N18.9 - Chronic kidney disease, unspecified (6) Diabetes mellitus, insulin dependent (IDDM), controlled Code(s): [id number] - Status: Chronic - Plan Patient's last troponin bumped to indeterminate. Dr. Wang concerned that patient's dizziness is an anginal equivalent. Plan on cath today. Attempt to obtain records from the [place]. Creatinine stable on fluids prior to cath today. Blood sugars well controlled. DVT proph: Lovenox GI proph: Famotidine D/C once cleared by cardiology.
[2020-04-29] MEDS ORDERED: Midazolam HCl 2 mg/2 ml Vial ONE (09:35)
[2020-04-29] MEDS ORDERED: Fentanyl 100 MCG/2 ML VIAL ONE (09:35)
[2020-04-29] MEDS ORDERED: Iopamidol 370 76% 100 ML VIAL ONE (10:07)
[2020-04-29] MEDS: Sodium Chloride 0.9% 1,000 ML IV SCH (15:13)
[2020-04-29] MEDS: HumaLOG 300 UNITS/3 ML VIAL SC PRN (17:59)
[2020-04-30] MEDS: Sodium Chloride 0.9% 1,000 ML IV SCH ×2 (04:46→17:47)
--- NOTE | 2020-04-30 07:29 | PDOC.HOSPP ---
- Subjective Encounter Date: 04/30/20 Encounter Time: 14:00 Subjective: Patient feeling well this morning. Ready to go home. However, had a second degree block that led to a [address] Wang informed and discharge put on hold. - Objective Vital Signs & Weight: Vital Signs (12 hours) Temp Pulse Resp BP BP Pulse Ox 04/30/20 03:53 98.2 F 52 L 12 107/56 L 92 L 04/29/20 19:49 97.6 F 67 18 125/68 98 Weight Weight 217 lb 1.6 oz I&O: 04/29/20 04/30/20 05/01/20 06:59 06:59 06:59 Intake Total 2660 500 Output Total 1000 850 Balance 1660 -350 Result Diagrams: 04/29/20 04:14 04/29/20 04:14 Additional Labs: Accuchecks 04/30/20 04/29/20 04/29/20 05:38 20:12 16:51 POC Glucose 129 H 194 H 280 H 04/29/20 10:45 POC Glucose 146 H Hospitalist ROS - Review of Systems Constitutional: denies: fever, chills, weakness Respiratory: denies: cough, shortness of breath Cardiovascular: denies: chest pain, palpitations Gastrointestinal: denies: nausea, vomiting, abdominal pain - Medication Medications: Active Medications Generic Name Dose Route Start Last Admin Trade Name Freq PRN Reason Stop Dose Admin Aspirin 81 mg 04/27/20 09:00 04/29/20 05:40 Aspirin 81 Mg Enteric Coated Tablet PO 81 mg DAILY TYSON Administration Clopidogrel Bisulfate 75 mg 04/27/20 09:00 04/29/20 05:40 Clopidogrel Bisulfate 75 Mg Tab PO 75 mg DAILY TYSON Administration Famotidine 20 mg 04/26/20 21:00 04/29/20 20:45 Famotidine 20 Mg Tab PO 20 mg BID TYSON Administration Sodium Chloride 1,000 mls @ 75 mls/hr 04/29/20 15:15 04/30/20 04:46 Normal Saline 0.9% IV Not Given .[id number] TYSON Insulin Human Lispro 0 units 04/26/20 17:40 04/29/20 17:59 Humalog 300 Units/3 Ml Vial SC 4 unit .MILD SLIDING SCALE PRN Administration Mild Correctional Scale Insulin Human Lispro 0 units 04/26/20 17:40 04/27/20 20:58 Humalog 300 Units/3 Ml Vial SC 3 unit .BEDTIME SLIDING SC PRN Administration Bedtime Correctional Scale Insulin Human NPH 4 unit 04/26/20 21:00 04/29/20 20:46 Nph, Human Insulin Isophane 300 Unit/3 Ml Vial SC 4 unit TID TYSON Administration - Exam General Appearance: NAD, awake alert ENT: moist mucosa Heart: RRR, no murmur, no gallops, no rubs Respiratory: CTAB, no wheezes, no rales, no ronchi Gastrointestinal: soft, non-tender, non-distended, normal bowel sounds Psychiatric: normal affect, normal behavior, A&O x 3 Hosp A/P (1) Pre-syncope Status: Acute (2) CAD (coronary artery disease) of artery bypass graft Code(s): I25.810 - ATHEROSCLEROSIS OF CABG W/O ANGINA PECTORIS Status: Chronic (3) HLD (hyperlipidemia) Code(s): E78.5 - HYPERLIPIDEMIA, UNSPECIFIED Status: Chronic (4) HTN (hypertension) Code(s): I10 - ESSENTIAL (PRIMARY) HYPERTENSION Status: Chronic (5) Chronic renal disease Code(s): N18.9 - CHRONIC KIDNEY DISEASE, UNSPECIFIED Status: Chronic Qualifiers: Chronic kidney disease stage: unspecified stage Qualified Code(s): N18.9 - Chronic kidney disease, unspecified (6) Diabetes mellitus, insulin dependent (IDDM), controlled Code(s): [id number] - Status: Chronic (7) Heart block AV second degree Code(s): I44.1 - ATRIOVENTRICULAR BLOCK, SECOND DEGREE Status: Acute - Plan Patient's last troponin bumped to indeterminate. Dr. Wang concerned that patient's dizziness is an anginal equivalent. Cath yesterday without any lesions that would benefit from stents. Continued medical management. Creatinine stable on fluids prior to cath today. Blood sugars well controlled. DVT proph: Lovenox GI proph: Famotidine Plan for pacemaker tomorrow.
[2020-04-30] MEDS: Clopidogrel Bisulfate 75 MG TAB PO SCH (08:40)
[2020-04-30] MEDS: Famotidine 20 MG TAB PO SCH (08:40)
[2020-04-30] MEDS: Aspirin 81 mg Enteric Coated Tablet PO SCH (08:40)
[2020-04-30] MEDS: NPH, Human Insulin Isophane 300 UNIT/3 ML VIAL SC SCH ×3 (08:41→21:01)
[2020-04-30] MEDS: HumaLOG 300 UNITS/3 ML VIAL SC PRN (12:15)
--- NOTE | 2020-04-30 17:21 | PDOC.CPN ---
- Subjective Date: 04/30/20 Time: 17:17 Interval history: He is doing well. Continues to have episodes of lightheadedness, and skips beats. - Review of Systems General: denies: fever/chills, weight/appetite/sleep changes, night sweats, fatigue Respiratory: denies: cough, congestion, shortness of breath, exercise intolerance Cardiovascular: denies: chest pain, palpitation, edema, paroxysmal nocturnal dys pnea, orthopnea Gastrointestinal: denies: nausea, vomiting, diarrhea, constipation, abd pain, GI bleeding Musculoskeletal: denies: pain, tenderness, stiffness, swelling, arthritis/arthralgias Neurological: denies: numbness, syncope, seizure, weakness - Objective Allergies/Adverse Reactions: Allergies Allergy/AdvReac Type Severity Reaction Status Date / Time tetracycline Allergy Verified 04/26/20 18:03 Visit Medications: Current Medications Acetaminophen (Acetaminophen 325 Mg Tab) 650 mg PO Q4H PRN PRN Reason: Headache/Fever/Mild Pain (1-3) Acetaminophen (Acetaminophen 650 Mg Suppository) 650 mg MI Q4H PRN PRN Reason: Headache/Fever/Mild Pain (1-3) Aspirin (Aspirin 81 Mg Enteric Coated Tablet) 81 mg PO DAILY [facility] Last Admin: 04/30/20 08:40 Dose: 81 mg Documented by: Clopidogrel Bisulfate (Clopidogrel Bisulfate 75 Mg Tab) 75 mg PO DAILY [facility] Last Admin: 04/30/20 08:40 Dose: 75 mg Documented by: Dextrose/Water (Dextrose 50% Abboject 50 Ml Syringe) 25 gm SLOW IVP PRN PRN PRN Reason: Hypoglycemia Famotidine (Famotidine 20 Mg Tab) 20 mg PO DAILY [facility] Glucagon (Glucagon 1 Mg/Ml Vial) 1 mg IM PRN PRN PRN Reason: Hypoglycemia Guaifenesin/Dextromethorphan (Guaifenesin Dm 100-10/5 Ml Udcup) 15 ml PO Q4H PRN PRN Reason: Cough Dextrose/Water (D5w) 1,000 mls @ 0 mls/hr IV .Q0M PRN PRN Reason: Hypoglycemia Sodium Chloride (Normal Saline 0.9%) 1,000 mls @ 75 mls/hr IV .[id number] [facility] Last Admin: 04/30/20 04:46 Dose: Not Given Documented by: Insulin Human Lispro (Humalog 300 Units/3 Ml Vial) 0 units SC .MILD SLIDING SCALE PRN PRN Reason: Mild Correctional Scale Last Admin: 04/30/20 12:15 Dose: 3 unit Documented by: Insulin Human Lispro (Humalog 300 Units/3 Ml Vial) 0 units SC .BEDTIME SLIDING SC PRN PRN Reason: Bedtime Correctional Scale Last Admin: 04/27/20 20:58 Dose: 3 unit Documented by: Insulin Human NPH (Nph, Human Insulin Isophane 300 Unit/3 Ml Vial) 4 unit SC TID TYSON Last Admin: 04/30/20 16:08 Dose: 4 unit Documented by: Ondansetron HCl (Ondansetron Odt 4 Mg Tab) 4 mg PO Q6H PRN PRN Reason: Nausea/Vomiting Ondansetron HCl (Ondansetron Pf 4 Mg/2 Ml Vial) 4 mg IVP Q6H PRN PRN Reason: Nausea/Vomiting Senna/Docusate Sodium (Senokot S 8.6-50 Mg Tab) 2 tab PO BID PRN PRN Reason: Constipation Sodium Chloride (Flush - Normal Saline 10 Ml Syringe) 10 ml IVF Q12HR TYSON Sodium Chloride (Flush - Normal Saline 10 Ml Syringe) 10 ml IVF PRN PRN PRN Reason: Saline Flush Vital Signs & Weight: Vital Signs Temp Pulse Resp BP BP Pulse Ox 04/30/20 16:00 98.3 F 60 12 110/54 L 98 04/30/20 12:10 97.8 F 71 16 140/63 99 04/30/20 07:45 97.5 F L 55 L 16 136/65 100 Weight 217 lb 1.6 oz - Physical Exam General: alert & oriented x3 HEENT: mucus membranes moist Neck: supple neck Cardiac: regular rate and rhythm Lungs: normal breath sounds Neuro: grossly intact Abdomen: active bowel sounds Extremities: no edema Skin: clear Musculoskeletal: no pain - Labs Result Diagrams: 04/29/20 04:14 04/29/20 04:14 Troponin/CKMB Troponin I 0.028 ng/mL (< 0.028) 04/27/20 14:05 - Telemetry Sinus rhythms and dysrhythmias: sinus rhythm - Assessment/Plan Assessment/Plan: 1. Chronic stable angina 2. Recent NSTEMI. 3. S/P CABG x 2 in 2013 4. High degree AV block. 2-1 AV block. PLAN: - Widely patent bypass grafts and MONZON. Problem is diffusely diseased distal vessels. Likely target for PCI was Diagonal branch but this is a 2.0 cm vessel. Small and better treated medically in my opinion. - On telemetry he had an episode of a 4.5 sec pause but he was sleeping, he also had 2-1 AV block and looks like AV dissociation while during the day while awake. This may explain his dizziness before coming in and is an indication for a PPM. I spoke with him about his and explained procedure and he agrees tro proceed.
[2020-05-01] MEDS ORDERED: CEFAZOLIN 1 GM VIAL ONE (06:34)
[2020-05-01] MEDS ORDERED: Gentamicin 80 MG/2 ML VIAL ONE (06:34)
[2020-05-01] MEDS: Sodium Chloride 0.9% 1,000 ML IV SCH (06:35)
[2020-05-01] MEDS ORDERED: Lidocaine 1% (PF) 30 ML VIAL ONE ×2 (06:47→07:22)
[2020-05-01] MEDS ORDERED: Midazolam HCl 2 mg/2 ml Vial ONE (07:20)
[2020-05-01] MEDS: Clopidogrel Bisulfate 75 MG TAB PO SCH (07:55)
[2020-05-01] MEDS: Aspirin 81 mg Enteric Coated Tablet PO SCH (07:55)
[2020-05-01] MEDS: NPH, Human Insulin Isophane 300 UNIT/3 ML VIAL SC SCH (07:56)
[2020-05-01] MEDS ORDERED: Famotidine 20 MG TAB PO SCH (09:00)
--- NOTE | 2020-05-01 10:23 | RAD ---
Chest one view HISTORY: Cardiac device placement. COMPARISON: 04/26/2020. FINDINGS: Cardiac silhouette is magnified by projection. Pulmonary vasculature is unremarkable. Mediastinum is slightly shifted rightward with patient rotation. Postoperative changes and aortic john cification. A new dual lead left subclavian cardiac electronic device is in place with tips overlying the right a trium and right ventricle. No evidence of pneumothorax. No lobar consolidation. There are degenerative changes of each shoulder. IMPRESSION : Left subclavian cardiac pacer is in good position. Chronic findings are stable.
[2020-05-01 11:48] VITALS: TEMP 98.3
--- NOTE | 2020-05-01 12:26 | CCLSPC ---
INDICATION FOR PROCEDURE: An 79-year-old patient with second-degree heart block type 2 with symptoms. He has had episodes of syncope. He has had a pause more than 4 seconds. He was advised to undergo dual chamber pacemaker insertion. PROCEDURE IN DETAIL: He was taken to the cardiac lab courier where he underwent the procedure today without difficulties or complications. He was implanted with a dual chamber pacemaker from [employer] and [place] [address] MRI compatible device with 2 screw-in leads, 1 in the atrium and 1 in the ventricle. There were no complications or difficulties encountered. He was given 2 mg of IV versed for the procedure and throughout the procedure was monitored by an independent observer present for heart rate, blood pressure, and O2 saturation remained stable throughout the procedure. Pacemaker was set with the upper rate of 120, the lower rate was set at 60. Job ID: [id number]
[2020-05-01] MEDS: HumaLOG 300 UNITS/3 ML VIAL SC PRN (12:57)
[2020-05-01 15:26] VITALS: BP 135/64
--- NOTE | 2020-05-01 17:28 | PQF ---
CLINICAL DOCUMENTATION CLARIFICATION FORM: Dear Dr. Lim Date: 05/01/20 Please exercise your independent, professional judgment in responding to the clarification form. Clinical indicators are provided on the bottom of this form for your review. Please check appropriate box(es): [ ] Acute Renal Failure / ANGELA [ ] Acute on Chronic Renal Failure please specify Stage of CKD (see below) [ x ] CKD without ARF/ANGELA please specify Stage of CKD_III [ ] ESRD [ ] Other diagnosis [ ] Unable to determine In addition, please specify: Present on Admission (POA): [ x ] Yes [ ] No [ ] Unable to determine For continuity of documentation, please document condition throughout progress notes and discharge summary. Thank You. To be completed by CDI/Coding staff for physician review: CLINICAL INDICATORS - SIGNS / SYMPTOMS / LABS / RESULTS AND LOCATION IN MR 04/27: PN (Matthew) Plan: Creatinine improving some this am. 04/27: Consult (Kathleen) Lab: Creatinine is 1.56. This is actually down from 1.82 04/28 PN (Matthew) Plan: Creatinine back up today. Will give gently fluids in preparation for cath tomorrow. BUN/Creat 04/26: 28 / 1.82 BUN/Creat 04/27: 25 / 1.56 BUN/ Creat 04/28: 31 / 1.67 GFR 04/26: 36 GFR 04/27: 43 GFR 04/28: 41 GFR 04/29: 40 RISK FACTORS / RESULTS AND LOCATION IN MR h/o CAD (H&P) h/o HTN (H&P) h/o Diabetes (H&P) h/o CKD (H&P) TREATMENTS / RESULTS AND LOCATION IN MR Serial labs IV fluids (ER-present) National Kidney Foundation Guidelines for CKD Staging Stage I Kidney damage with normal or increased GFR GFR > 90 Stage II Kidney damage with mildly decreased GFR GFR 60-89 Stage III Kidney damage with moderately decreased GFR GFR 30-59 Stage IV Kidney damage with severely decreased GFR GFR 16-29 Stage V Kidney failure GFR<15 ESRD End Stage Renal Disease On dialysis Acute Renal Failure/Acute Kidney Failure defined as: Increases in SCr by (>) 0.3 mg/dl within 48 hours OR- Increases in SCr by (>) 1.5 times baseline, known or presumed to have occurred within the prior 7 days OR- Urine volume < 0.5 ml/kg/hour for 6 hours (KDIGO supplement 2012 for RIFLE/TAMIKO criteria) CDS Signature: Betsy Henning RN Phone #: [phone] Date: 05/01/20 This is a permanent part of the Medical Record [facility]
--- NOTE | 2020-05-01 19:21 | DIS ---
DATE OF ADMISSION: 04/27/2020 DATE OF DISCHARGE: 05/01/2020 DISCHARGE DIAGNOSES: 1. 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 2. Syncopal episode secondarily to #1. 3. Coronary artery disease, chronic and stable. 4. Hypertension, stable. 5. Diabetes mellitus type 2, insulin requiring, stable. 6. Chronic kidney disease, stage 3. CONSULTATIONS: 1. Charles Wang MD with Cardiology Service. 2. Cherry Avalos MD with Cardiology Service. PERTINENT LABORATORY AND X-RAY FINDINGS: Creatinine ranged between 1.56 to 1.82 and estimated GFR ranged between 36 to 43. Troponin I ranged between 0.020 to 0.048. Total cholesterol 179, triglycerides 123, HDL 29, and LDL 125. Portable chest x-ray dated 04/26/2020, showed no acute cardiopulmonary process. Left heart catheterization dated 04/29/2020, showed multivessel coronary artery disease with recommendations for medical management. A 2D transthoracic echocardiogram dated 04/28/2020, showed ejection fraction of 50% to 55%. Diastolic function indeterminate. Technically limited exam. Portable chest x-ray dated 05/01/2020, showed left subclavian cardiac pacemaker device and appropriate positioning. No evidence for pneumothorax. HOSPITAL COURSE: The patient initially presented with lightheadedness and dizziness in the context of known coronary artery disease, status post coronary artery bypass grafting x2 vessels. The patient underwent metabolic and radiographic evaluation as well as evaluation for syncopal episodes. The patient underwent evaluation by the Cardiology Service, undergoing a cardiac catheterization showing multivessel coronary artery disease. However, the recommendations are for medical management. The patient was noted on telemetry monitoring with second-degree AV block type 2, at which point, the patient was deemed an appropriate candidate to undergo dual chamber pacemaker placement. The patient underwent the procedure on 05/01/2020 without complication. The patient overall remained clinically stable during the hospital course tolerating regular oral intake with stable vital signs. I have examined the patient at the time of discharge and discussed followup instructions. The patient verbalizes understanding and agreement, ready for discharge on 05/01/2020. DISCHARGE MEDICATIONS: 1. Enteric-coated aspirin 81 mg p.o. daily. 2. Plavix 75 mg p.o. daily. 3. Norvasc 2.5 mg p.o. daily. 4. Humulin N 4 to 8 units subcutaneously before meals and at bedtime. FOLLOWUP: The patient to follow up with his primary care provider at the [facility]. The patient will follow up with Dr. Wang with [facility] Cardiology Service in 2 to 3 weeks after discharge. The patient may follow up with Dr. Gerald Avalos within 7 to 10 days of discharge. CONDITION ON DISCHARGE: Stable. ACTIVITY: Ad-augusto. DIET: ADA and heart healthy. CODE STATUS: Full. DISPOSITION: To home 05/01/2020. TIME SPENT: Total time preparing and coordinating discharge, 33 minutes. Job ID: [id number]
[2020-05-04] MEDS ORDERED: Nitroglycerin 0.4 MG TAB (25 Tab Bottle) SL PRN (09:19)
[2020-05-05] MEDS ORDERED: Enoxaparin Sodium 40 MG/0.4 ML SYRINGE SC SCH (09:00)
== END 2020-05-01 17:20 | disposition home or self-care (01) | DRG 242 ==
LOC: ERS 12:55 → 2NO 16:19 → OBSVTOIN 04-27 21:38
PROVIDERS: ADMIT Emergency Medicine; ATTEND Emergency Medicine
PROC: 4A023N7 Measurement of Cardiac Sampling and Pressure, Left Heart, Percutaneous Approach (ICD-10-PCS; 2020-04-29)
PROC: B2181ZZ Fluoroscopy of Left Internal Mammary Bypass Graft using Low Osmolar Contrast (ICD-10-PCS; 2020-04-29)
PROC: B2111ZZ Fluoroscopy of Multiple Coronary Arteries using Low Osmolar Contrast (ICD-10-PCS; 2020-04-29)
PROC: B21F1ZZ Fluoroscopy of Other Bypass Graft using Low Osmolar Contrast (ICD-10-PCS; 2020-04-29)
PROC: 0JH606Z Insertion of Pacemaker, Dual Chamber into Chest Subcutaneous Tissue and Fascia, Open Approach (ICD-10-PCS; principal; 2020-05-01)
PROC: 02H63JZ Insertion of Pacemaker Lead into Right Atrium, Percutaneous Approach (ICD-10-PCS; 2020-05-01)
PROC: 02HK3JZ Insertion of Pacemaker Lead into Right Ventricle, Percutaneous Approach (ICD-10-PCS; 2020-05-01)
DX: I44.1 Atrioventricular block, second degree (principal); I21.4 Non-ST elevation (NSTEMI) myocardial infarction; Z20.828 Contact with and (suspected) exposure to other viral communicable diseases; N18.30 Chronic kidney disease, stage 3 unspecified; E11.22 Type 2 diabetes mellitus with diabetic chronic kidney disease; I12.9 Hypertensive chronic kidney disease with stage 1 through stage 4 chronic kidney disease, or unspecified chronic kidney disease; H81.09 Meniere's disease, unspecified ear; I25.118 Atherosclerotic heart disease of native coronary artery with other forms of angina pectoris; D63.1 Anemia in chronic kidney disease; Z95.1 Presence of aortocoronary bypass graft; Z88.1 Allergy status to other antibiotic agents; Z88.8 Allergy status to other drugs, medicaments and biological substances; Z79.899 Other long term (current) drug therapy; Z79.82 Long term (current) use of aspirin; Z79.02 Long term (current) use of antithrombotics/antiplatelets; Z79.4 Long term (current) use of insulin; Z90.49 Acquired absence of other specified parts of digestive tract
CPT/HCPCS: 33208; 36415; 36416; 71045; 80048; 80053; 80061; 84484; 85025; 87635; 93005; 93306; 93455; 94760; 96372; 99152; 99153; C1785; C1898; G0378; J0690; J1580; J1644; J1650; J2001; J2250; J3010; Q9967; U0003

== ENCOUNTER 2020-05-04 04:45 | Observation (INO) | payer MEDICARE, OTHER ==
[2020-05-04 05:54] LABS: #Eosinphils 0.3 thou/uL (0.0-0.7); #Lymphocytes 1.6 thou/uL (1.20-3.40); #Monocytes 0.7 thou/uL (0.11-0.59); #Neutrophils 5.2 thou/uL (1.40-6.50); %Basophils 0.6 % (0.0-1.0); %Eosinophils 3.3 % (0.0-10.0); %Lymphocytes 20.5 % (21.0-51.0); %Monocytes 8.4 % (0.0-10.0); %Neutrophils 67.2 % (42.0-75.0); Hemoglobin 14.2 g/dL (14.0-18.0); Mean Corpuscular HGB CONC 35.8 g/dL (32.0-36.0); Mean Corpuscular Hemoglobin 33.3 pg (27.0-31.0); Mean Platelet Volume 8.6 fL (7.4-10.4); Platelet Count 165 thou/uL (130-400); RBC Distribution Width 11.8 % (11.5-14.5); Red Blood Cell (RBC) Count 4.26 mill/uL (4.70-6.10); White Blood Cell (WBC) Count 7.7 thou/uL (4.8-10.8)
[2020-05-04 06:22] LABS: ALT (SGPT) 11 U/L (8-55); AST (SGOT) 14 U/L (5-34); Albumin 4.4 g/dL (3.4-4.8); Alkaline Phosphatase 75 U/L (40-110); Anion Gap 16 mmol/L (10-20); BUN (Urea Nitrogen) 26 mg/dL (8.4-25.7); Bilirubin, Total 0.7 mg/dL (0.2-1.2); CK (CPK) 41 U/L (30-200); Calc. Creatinine Clearance 0 mL/min (70-130); Calcium 9.3 mg/dL (7.8-10.44); Carbon Dioxide 22 mmol/L (23-31); Chloride 105 mmol/L (98-107); Estimated GFR-MDRD 44; Glucose 185 mg/dL (83-110); Potassium 4.2 mmol/L (3.5-5.1); Protein, Total 7.4 g/dL (5.8-8.1); Sodium 139 mmol/L (136-145)
[2020-05-04 08:53] LABS: Troponin I 0.031 ng/mL (< 0.028)
[2020-05-04] MEDS ORDERED: Senokot S 8.6-50 MG TAB PO PRN (09:21)
[2020-05-04] MEDS ORDERED: Acetaminophen 325 MG TAB PO PRN ×2 (09:21→11:47)
[2020-05-04] MEDS ORDERED: Dextrose 50% Abboject 50 ML SYRINGE SLOW IVP PRN (09:25)
[2020-05-04] MEDS ORDERED: Dextrose 5% in Water 1,000 ML IV PRN (09:25)
[2020-05-04 09:44] VITALS: BMI 27.9
--- NOTE | 2020-05-04 10:33 | RAD ---
PORTABLE CHEST: 05/04/20 PROVIDED CLINICAL HISTORY: Chest pain. COMPARISON: 05/01/2020 FINDINGS: The cardiac and mediastinal silhouette is unchanged in appearance. Median sternotomy changes and left subclavian cardiac pacing device are redemonstrated in similar positions. There is no focal consolid ation, pleural fluid or pneumothorax apparent. IMPRESSION: No evidence for an acute cardiopulmonary process. POS: LAYO
--- NOTE | 2020-05-04 13:06 | HP ---
CHIEF COMPLAINT: Dizziness, lightheadedness. 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 However, recently was discharged from the hospital on 05/01 and underwent a pacemaker placement for a second-degree heart block and also had a cardiac cath and recommendation was medical management, who presents to the hospital with complaints of continuing having lightheadedness and presyncope symptoms. The patient states that since he has left the hospital, he continues to have these strange episodes where the patient is covered with sparkles and he feels very lightheaded and gets very diaphoretic and sometimes feels very hot at the bottom of his feet. He denies passing out or syncopal event. The patient stated that last night this woke him up. His vision was covered with sparkles, then felt very lightheaded. He then started having burning sensation to his feet and then very diaphoretic and then started having pain in his jaw, which he was concerned for possible heart attack, so he came into the ER for further evaluation. He states that since he has been discharged from the hospital, he continues to feel this way. He denies any fevers, chills. He has been taking insulin NPH. He took 6 units last night. He stated that he ate some chicken with some oatmeal. He stated that he did check his sugar last night when this episode happened and his sugar was 180 and he took it even prior to going to bed at 9 which was around 170 to 180. PAST MEDICAL HISTORY: 1. He has a history of CAD, status post bypass. 2. Second-degree block. 3. Hyperlipidemia. 4. Hypertension. 5. Diabetes. 6. Meniere disease and anemia. PAST SURGICAL HISTORY: He has had a CABG in 2001 with repeat CABG in 2014, cholecystectomy, tonsillectomy and adenoidectomy. SOCIAL HISTORY: He has never smoked. No drug use. He drinks a small glass of wine every day with water. He lives by himself. His medical power of patent prosecution attorney are his daughters, Brigette Day and Keshia Sampson. 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 FAMILY HISTORY: No history of heart disease or strokes. ALLERGIES: HE IS ALLERGIC TO TETRACYCLINE AND STATIN CAUSES MUSCLE ACHES AND WEAKNESS. MEDICATIONS: 1. Aspirin 81 mg daily. 2. Plavix 75 mg daily. 3. NPH. He takes it based on his sugars. PHYSICAL EXAMINATION: VITAL SIGNS: Temperature 97.9, 66, 15, 100% on room air, 163/83. GENERAL: He is awake, alert, and oriented x3. Does not appear in distress. He is hard of hearing. CV: S1, S2 present. No murmurs, rubs, or gallops. LUNGS: Clear to auscultation. No rhonchi or wheezes noted. ABDOMEN: Soft and nontender. Bowel sounds are present x2. EXTREMITIES: Mild 1+ lower extremity pitting edema. His left chest wall, he does have the pacemaker site, has some bruising around. However, no erythema noted. NEUROVASCULAR: He has no focal deficits noted. SKIN: No cuts, lesions, or bruises except for the pacemaker site insertion. LABORATORY RESULTS: As of the following. WBCs of 7.7, hemoglobin of 14.2, hematocrit of 39.6, platelets of 165. Chemistries: Sodium of 139, potassium of 4.2, BUN of 26, creatinine 1.52. His troponin initially was 0.028, repeat was 0.031. He did have a chest x-ray, which did not show any acute cardiopulmonary process. His EKG was paced. ASSESSMENT AND PLAN: The patient is a very pleasant 79-year-old male, who presents to the hospital with complaints of presyncope. 1. Presyncope. The patient stated that he woke up with this. The possibilities are cardiac versus hypoglycemia versus Meniere's. He states that it is not the typical symptoms of his Meniere's. There is possibly that he could have hypoglycemia since he took 6 units of insulin last night. However, his sugars were 180. However, that could be due to this cortisol, it is unclear. I have to rule out cardiac etiologies given the fact that he has multiple cardiac problems and currently had a pacemaker placed. We will get Cardiology on board. We will trend his troponins and observe him overnight. We will check a vitamin B12 and also TSH. 2. History of CAD. We will continue his home medications. He is allergic to statin and that is why we will not give him statin. He continues aspirin and Plavix. 3. Diabetes. I will just put him on sliding scale and we will monitor his sugars a.c. and at bedtime. 4. DVT prophylaxis. We will put the patient on SCDs and Lovenox. Job ID: [id number]
[2020-05-04 13:27] LABS: Troponin I 0.022 ng/mL (< 0.028)
[2020-05-04 14:01] LABS: Thyroid Stimulating Hormone 5.2351 uIU/mL (0.35-4.94)
[2020-05-04] MEDS ORDERED: Clopidogrel Bisulfate 75 MG TAB PO SCH (14:30)
--- NOTE | 2020-05-04 14:30 | CON ---
DATE OF CONSULTATION: HISTORY OF PRESENT ILLNESS: The patient is an 79-year-old gentleman, who presented with severe weakness. The patient has a long history of coronary artery disease. He has undergone coronary artery bypass graft surgery on two occasions. The last in 2013,when he was admitted with unstable angina, He recently underwent a cardiac catheterization. He was found to have diffusely diseased coronary vessels. It was recommended that the patient placed on medical therapy. He subsequently was evaluated for syncope and had placement of electronic pacemaker. The patient presented to the emergency room after he had difficulty when he woke up and felt difficulty with his vision, weakness, and became diaphoretic. He subsequently developed substernal chest discomfort. PAST MEDICAL HISTORY: 1. Coronary artery disease. 2. History of pacemaker placement. 3. Hypertension. 4. Dyslipidemia. 5. Diabetes mellitus. 6. Meniere's disease. PAST SURGICAL HISTORY: Tonsillectomy, cholecystectomy, CABG. SOCIAL HISTORY: Nonsmoker. FAMILY HISTORY: No strong family history of heart disease. ALLERGIES: TETRACYCLINE, ALL STATINS CAUSE MUSCLE WEAKNESS. MEDICATION ON ADMISSION: 1. Aspirin 81 daily. 2. Plavix 75 daily. 3. NPH. PHYSICAL EXAMINATION: GENERAL: Well-developed gentleman, in no acute distress. VITAL SIGNS: Blood pressure of 162/82 sitting, standing is 171/77, supine 158/76. NECK: No jugular venous distention. LUNGS: Clear to auscultation. HEART: Regular rate and rhythm. Normal S1 and S2. ABDOMEN: Nondistended. EXTREMITIES: Showed no edema. LABORATORY RESULTS: Sodium 139, potassium 4.2, chloride 105, bicarbonate 22, BUN 26, and creatinine 1.5. Troponin 0.031. White blood cell count was 7.7, hemoglobin 14.2, hematocrit 39.6, and platelets are 165. EKG electronic ventricular pacemaker. IMPRESSION: 1. Dizziness, possibly secondary to hypoglycemia. 2. History of coronary artery bypass surgery on two occasions with diffuse coronary vessels. 3. History of pacemaker placement. 4. Meniere's disease. 5. Hypertension. PLAN: This gentleman presents with weakness and dizziness that awoke him up from sleep while he was supine. From a cardiac standpoint, I think it is unlikely to be from a cardiac etiology. It is more suggestive of hypoglycemia. With the patient's severe coronary artery disease, we will try him on Ranexa to see if this might make him have less chest discomfort. The patient needs to be on lipid-lowering medication. We will add Zetia since he is intolerant to statins. The patient should be on Repatha or Praluent since he is high risk of cardiac complications. We will check the patient's lipid panel. We will follow this patient with you through his hospitalization. Job ID: [id number] MTDD
[2020-05-04] MEDS ORDERED: Lisinopril 2.5 MG TAB PO SCH (14:45)
[2020-05-04] MEDS: HumaLOG 300 UNITS/3 ML VIAL SC PRN (19:09)
[2020-05-05 05:16] LABS: Anion Gap 16 mmol/L (10-20); BUN (Urea Nitrogen) 26 mg/dL (8.4-25.7); Calc. Creatinine Clearance 58 mL/min (70-130); Calcium 9.1 mg/dL (7.8-10.44); Carbon Dioxide 20 mmol/L (23-31); Cardiac Risk 6.4 (Less than 4.5); Chloride 107 mmol/L (98-107); Cholesterol 179 mg/dl (< 200 Desired); Estimated GFR-MDRD 49; Glucose 187 mg/dL (83-110); HDL Cholesterol 28 mg/dL (>60 Neg Risk); LDL Cholesterol, Calculated 126 mg/dL; Potassium 4.6 mmol/L (3.5-5.1); Sodium 138 mmol/L (136-145); Triglycerides 123 mg/dL (Less than 150)
[2020-05-05] MEDS: HumaLOG 300 UNITS/3 ML VIAL SC PRN ×2 (06:16→12:53)
[2020-05-05 07:05] LABS: #Basophils 0.1 thou/uL (0.0-0.2); #Eosinphils 0.3 thou/uL (0.0-0.7); #Lymphocytes 1.5 thou/uL (1.20-3.40); #Monocytes 0.5 thou/uL (0.11-0.59); #Neutrophils 4.3 thou/uL (1.40-6.50); %Basophils 0.8 % (0.0-1.0); %Eosinophils 4.4 % (0.0-10.0); %Lymphocytes 23.1 % (21.0-51.0); %Monocytes 6.9 % (0.0-10.0); %Neutrophils 64.7 % (42.0-75.0); Hemoglobin 13.9 g/dL (14.0-18.0); Mean Corpuscular HGB CONC 33.9 g/dL (32.0-36.0); Mean Corpuscular Hemoglobin 31.8 pg (27.0-31.0); Mean Corpuscular Volume 93.8 fL (78.0-98.0); Mean Platelet Volume 8.2 fL (7.4-10.4); Platelet Count 183 thou/uL (130-400); Red Blood Cell (RBC) Count 4.39 mill/uL (4.70-6.10); White Blood Cell (WBC) Count 6.7 thou/uL (4.8-10.8)
[2020-05-05] MEDS: Cholecalciferol 1,000 UNITS (25 MCG) TAB PO SCH (09:30)
[2020-05-05] MEDS: Clopidogrel Bisulfate 75 MG TAB PO SCH (09:30)
[2020-05-05] MEDS: Enoxaparin Sodium 40 MG/0.4 ML SYRINGE SC SCH (09:30)
[2020-05-05] MEDS: Aspirin 81 mg Enteric Coated Tablet PO SCH (09:30)
[2020-05-05] MEDS: Ezetimibe 10 MG TAB PO SCH (09:31)
[2020-05-05] MEDS: Lisinopril 2.5 MG TAB PO SCH (09:31)
--- NOTE | 2020-05-05 16:04 | PDOC.HOSPP ---
- Subjective Encounter Date: 05/05/20 Encounter Time: 08:00 Subjective: Patient seen for follow-up regarding presyncope. He reports feeling well, has not yet ambulated today. - Objective Vital Signs & Weight: Vital Signs (12 hours) Temp Pulse Resp BP BP BP BP 05/05/20 12:00 97.4 F L 61 18 129/58 L 05/05/20 09:31 65 120/60 05/05/20 08:00 98.3 F 68 18 143/67 H 148/80 H 153/66 H Pulse Ox 05/05/20 12:00 100 05/05/20 09:31 05/05/20 08:00 100 Weight Weight 215 lb I&O: 05/04/20 05/05/20 05/06/20 07:59 06:59 06:59 Intake Total 360 Output Total Balance 360 Result Diagrams: 05/05/20 06:52 05/05/20 04:26 Additional Labs: Accuchecks 05/05/20 05/05/20 05/04/20 10:54 05:48 22:40 POC Glucose 250 H 183 H 183 H I reviewed patient's labs and MAR EKG Reviewed by me: Yes (Telemetry: Electronic AV paced) Hospitalist ROS - Review of Systems Cardiovascular: denies: chest pain, palpitations, orthopnea, paroxysmal noc. dyspnea, edema, light headedness Gastrointestinal: denies: nausea, vomiting, abdominal pain, diarrhea, constipation, melena, hematochezia - Medication Medications: Active Medications Generic Name Dose Route Start Last Admin Trade Name Leoq PRN Reason Stop Dose Admin Aspirin 81 mg 05/05/20 09:00 05/05/20 09:30 Aspirin 81 Mg Enteric Coated Tablet PO 81 mg DAILY TYSON Administration Cholecalciferol 2,000 units 05/05/20 09:00 05/05/20 09:30 Cholecalciferol 1,000 Units (25 Mcg) Tab PO 2,000 units DAILY TYSON Administration Clopidogrel Bisulfate 75 mg 05/05/20 09:00 05/05/20 09:30 Clopidogrel Bisulfate 75 Mg Tab PO 75 mg DAILY TYSON Administration Ezetimibe 10 mg 05/05/20 09:00 05/05/20 09:31 Ezetimibe 10 Mg Tab PO 10 mg DAILY TYSON Administration Enoxaparin Sodium 40 mg 05/05/20 09:00 05/05/20 09:30 Enoxaparin Sodium 40 Mg/0.4 Ml Syringe SC 40 mg 0900 TYSON Administration Insulin Human Lispro 0 units 05/04/20 09:25 05/05/20 12:53 Humalog 300 Units/3 Ml Vial SC 3 unit .MILD SLIDING SCALE PRN Administration Mild Correctional Scale Lisinopril 2.5 mg 05/05/20 09:00 05/05/20 09:31 Lisinopril 2.5 Mg Tab PO 2.5 mg DAILY TYSON Administration Ranolazine 500 mg 05/04/20 21:00 05/05/20 09:31 Ranolazine 500 Mg Tab PO 500 mg BID TYSON Administration - Exam General Appearance: awake alert Eye: anicteric sclera ENT: moist mucosa Neck: supple Heart: RRR Respiratory: CTAB Gastrointestinal: soft Skin: no rashes Psychiatric: normal affect, normal behavior Hosp A/P - Plan 1. Presyncope: No recurrence. No significant arrhythmias on telemetry monitoring. Appreciate cardiology service input. 2. Coronary artery disease: Patient is on medical management. He has been started on Ranexa, will continue. Continue aspirin and Plavix. 3. Diabetes mellitus: Continue Accu-Cheks and insulin sliding scale. 4. Chronic kidney disease stage III: Stable Ambulate patient. Likely home later today or tomorrow.
[2020-05-06 00:13] LABS: SARS-CoV-2 MS2 Positive; SARS-CoV-2 N Gene Negative; SARS-CoV-2 S Gene Negative; SARS-CoV-2 by NAA Not Detected (Not Detected); SARS-CoV-2 orf1ab Negative
[2020-05-06] MEDS: HumaLOG 300 UNITS/3 ML VIAL SC PRN ×2 (06:20→13:12)
[2020-05-06] MEDS: Aspirin 81 mg Enteric Coated Tablet PO SCH (09:10)
[2020-05-06] MEDS: Cholecalciferol 1,000 UNITS (25 MCG) TAB PO SCH (09:11)
[2020-05-06] MEDS: Clopidogrel Bisulfate 75 MG TAB PO SCH (09:11)
[2020-05-06] MEDS: Enoxaparin Sodium 40 MG/0.4 ML SYRINGE SC SCH (09:11)
[2020-05-06] MEDS: Ezetimibe 10 MG TAB PO SCH (09:12)
[2020-05-06] MEDS: Lisinopril 2.5 MG TAB PO SCH (09:12)
[2020-05-06 12:04] VITALS: TEMP 97.6
[2020-05-06 12:16] VITALS: BP 144/74
--- NOTE | 2020-05-06 14:49 | CT ---
Exam: Head CT without contrast HISTORY: Evaluate for CVA. COMPARISON: none FINDINGS: Hemorrhage: No intraparenchymal hemorrhage or extra-axial hematoma. Brain parenchyma: Cortical tompkins-white matter differentiation is preserved. No mass effect or midline shift. Basilar cisterns are patent. Ventricular system: Ventricles and sulci are patent and symmetric. Calvarium: Intact. Sinuses and mastoid air cells: Adequate aeration. IMPRESSION: No acute intracranial process.
--- NOTE | 2020-05-06 15:28 | PDOC.DS.DS ---
Provider - Provider Date of Admission: 05/04/20 08:19 Date of Discharge: 05/06/20 Admitting Provider: Nicole Yañez MD Consultations: Cardiology Primary Care Physician: Charles Wang MD Course - Hospital Course Hospital Course: Discharge diagnosis: 1.Presyncope 2. Dyslipidemia 3. History of coronary artery disease Hospital course: Patient is a pleasant 79-year-old gentleman who was admitted to the hospital on May 04, 2020 for presyncope. He was monitored on telemetry. He was seen by cardiology service. He has been started on Zetia for dyslipidemia and on Ranexa for coronary artery disease. He was evaluated by physical therapy service and was recommended discharge to home. Patient also had a noncontrast CT scan of the brain, which did not show any acute intracranial abnormality. Many thanks for allowing me to participate in your patient's care. Please feel free to contact me with any questions or concerns. Resuscitation Status: 05/04/20 09:21 Resuscitation Status Routine Resuscitation Status: FULL: Full Resuscitation - Labs Lab Results: 05/05/20 06:52 05/05/20 04:26 Abnormal Lab Results - Last 48 hrs 05/05/20 04:26: Carbon Dioxide 20 L, BUN 26 H, Creatinine 1.40 H 05/05/20 06:52: RBC 4.39 L, Hgb 13.9 L, Hct 41.2 L, MCH 31.8 H - Physical Exam Vitals: Vital Signs (12 hours) Temp Pulse Resp BP BP BP BP 05/06/20 11:45 97.6 F 67 14 149/70 H 05/06/20 10:50 142/67 H 158/79 H 144/74 H 05/06/20 09:00 97.7 F 68 16 156/72 H Pulse Ox 05/06/20 11:45 100 05/06/20 10:50 05/06/20 09:00 99 Weight Weight 215 lb 8 oz Physical Exam: The patient was seen and examined on the day of discharge. He denies any chest pain or shortness of breath. Vital signs are stable. S1 and S2 are heard, regular. Lungs are clear to auscultation bilaterally. Plan - Discharge Medications Home Medications: Medication Instructions Recorded Confirmed Type Aspirin [Aspirin EC] 81 mg PO DAILY 04/26/20 05/04/20 History Clopidogrel Bisulfate [Plavix] 75 mg PO DAILY 04/26/20 05/04/20 History NPH, Human Insulin Isophane 4 - 8 units SQ ACHS 04/27/20 05/04/20 History [HumuLIN N] Acetaminophen [Tylenol] 325 mg PO Q6H PRN 05/04/20 05/04/20 History Cholecalciferol (Vitamin D3) 2,000 unit PO DAILY 05/04/20 05/04/20 History [Vitamin D3] Lisinopril 2.5 mg PO DAILY 05/04/20 05/04/20 History Ezetimibe [Zetia] 10 mg PO DAILY tab 05/06/20 Rx Ranolazine [Ranexa] 500 mg PO BID tab 05/06/20 Rx Allergies: tetracycline Allergy (Verified 05/04/20 23:05) - Discharge Instructions Activity:: Activity as Tolerated Nourishment:: Diabetic Diet, Heart Healthy Diet - Follow up Plan Referrals: Charles Wang MD [Primary Care Provider] - 3-4 Weeks [facility] [ Not on Staff] - 3 Days Disposition: HOME Quality - Care Measures CORE MEASURES:: N/A
== END 2020-05-06 19:05 | disposition home or self-care (01) ==
LOC: ERS 04:45 → 2SE 08:19 → 2NO 22:19
PROVIDERS: ADMIT Internal Medicine; ATTEND Internal Medicine
DX: R55 Syncope and collapse (principal); E78.5 Hyperlipidemia, unspecified; I25.10 Atherosclerotic heart disease of native coronary artery without angina pectoris; I44.1 Atrioventricular block, second degree; H81.09 Meniere's disease, unspecified ear; I25.2 Old myocardial infarction; I12.9 Hypertensive chronic kidney disease with stage 1 through stage 4 chronic kidney disease, or unspecified chronic kidney disease; E11.22 Type 2 diabetes mellitus with diabetic chronic kidney disease; N18.30 Chronic kidney disease, stage 3 unspecified; Z79.02 Long term (current) use of antithrombotics/antiplatelets; Z79.4 Long term (current) use of insulin; Z79.82 Long term (current) use of aspirin; Z79.899 Other long term (current) drug therapy; Z88.1 Allergy status to other antibiotic agents; Z88.8 Allergy status to other drugs, medicaments and biological substances; Z95.0 Presence of cardiac pacemaker; Z95.1 Presence of aortocoronary bypass graft; Z20.828 Contact with and (suspected) exposure to other viral communicable diseases
CPT/HCPCS: 70450; 71045; 80048; 80061; 82550; 82607; 82962 ×3; 83735; 84484 ×2; 85025; 93005; 96372 ×2; 97116; 97139 ×3; 99285; G0378 ×4; U0003; 36415; 36416; 80053; 84443; 87635; J1650

== ENCOUNTER 2020-06-23 14:09 | Observation (INO) | payer MEDICARE ==
[2020-06-23] MEDS ORDERED: Boostrix 0.5 ML (Tdap) VIAL ONE (14:47)
--- NOTE | 2020-06-23 14:48 | RAD ---
XR Chest 1 View Portable History: Fall Comparison: Radiograph May 04, 2020 Findings: Lungs are clear. No pneumothorax. No effusion. Midline sternotomy wires and pacer leads are similar. No acute osseous abnormality. Impression: No acute intrathoracic abnormality.
[2020-06-23 14:54] LABS: #Basophils 0.1 thou/uL (0.0-0.2); #Eosinphils 0.1 thou/uL (0.0-0.7); #Lymphocytes 1.2 thou/uL (1.20-3.40); #Monocytes 0.5 thou/uL (0.11-0.59); #Neutrophils 7.3 thou/uL (1.40-6.50); %Basophils 0.6 % (0.0-1.0); %Eosinophils 1.6 % (0.0-10.0); %Lymphocytes 12.7 % (21.0-51.0); %Neutrophils 79.2 % (42.0-75.0); Hemoglobin 14.8 g/dL (14.0-18.0); Mean Corpuscular HGB CONC 35.4 g/dL (32.0-36.0); Mean Corpuscular Hemoglobin 32.9 pg (27.0-31.0); Mean Corpuscular Volume 92.8 fL (78.0-98.0); Mean Platelet Volume 8.2 fL (7.4-10.4); Platelet Count 200 thou/uL (130-400); Red Blood Cell (RBC) Count 4.51 mill/uL (4.70-6.10); White Blood Cell (WBC) Count 9.2 thou/uL (4.8-10.8)
--- NOTE | 2020-06-23 15:10 | CT ---
CT Brain WO Con History: Fall Comparison: CT brain May 06, 2020 Findings: Extensive right periorbital soft tissue swelling. No acute intracranial hemorrhage or infar ct. No midline shift or mass effect. Calvarium is intact. Likely a right orbital floor fracture. Impression: 1. Extensive right periorbital soft tissue swelling and likely right orbital floor fracture. 2. No acute posttraumatic intracranial sequelae. No acute hemorrhage.
--- NOTE | 2020-06-23 15:14 | CT ---
CT Facial Bones WO Con History: Fall Comparison: None. Findings: Right orbital floor blowout fracture measuring transversely 14 mm with an AP dimension 2.5 cm. Tethering of the right inferior rectus muscle with fat herniation. Large volume hemorrhage within the right maxillary sinus. The medial orbital tapia and lateral orbital tapia are intact along with the orbital roofs. No retrobulbar hematoma. Right maxillary contusion and hemorrhage. The zygoma and zygomatic arches are intact. Pterygoid plate s are intact. No nasal bone fracture. Impression: 1. Right orbital floor blowout fracture containing herniated fat with mild tethering of the inferior rectus muscle. 2. Extensive right periorbital contusion and hematoma extending along the right maxillary soft tissue s. 3. Extensive debris and hemorrhage within the right maxillary sinus. 4. Intact right zygoma.
[2020-06-23 15:17] LABS: ALT (SGPT) 15 U/L (8-55); AST (SGOT) 14 U/L (5-34); Albumin 4.6 g/dL (3.4-4.8); Alkaline Phosphatase 83 U/L (40-110); Anion Gap 16 mmol/L (10-20); BUN (Urea Nitrogen) 29 mg/dL (8.4-25.7); Bilirubin, Total 0.7 mg/dL (0.2-1.2); CK (CPK) 43 U/L (30-200); Calc. Creatinine Clearance 0 mL/min (70-130); Calcium 9.6 mg/dL (7.8-10.44); Carbon Dioxide 24 mmol/L (23-31); Chloride 102 mmol/L (98-107); Globulin 3.2 g/dL (2.4-3.5); Glucose 182 mg/dL (83-110); Protein, Total 7.8 g/dL (5.8-8.1); Sodium 137 mmol/L (136-145)
--- NOTE | 2020-06-23 15:18 | CT ---
CT Cervical Spine WO Con History: Fall Comparison: None. Findings: Occipital condyles are intact. Erosive changes between the clivus and odontoid process. Sev ere narrowing of the atlantodental interval. Nuchal ligament calcifications. No acute cervical spine fracture or malalignment. Lung apices are clear. Visualized ribs are intact. Impression: No acute cervical spine fracture or malalignment.
[2020-06-23] MEDS ORDERED: Clindamycin/D5W 900 mg/50 ml Premix Bag ONE (16:42)
--- NOTE | 2020-06-23 18:01 | PDOC.HHP ---
Hospitalist HPI - History of Present Illness History of Present Illness: ADMISSION DATE: 06/23/2020 TIME OF ASSESSMENT: 1700 PRIMARY CARE PHYSICIAN: WI gurdeep CHIEF COMPLAINT: Collapse with injury to right HPI: This is an 79-year-old gentleman who presents to the emergency department after sustaining a sudden collapse while he was in his kitchen with subsequent injury to the right eye. He denies having any preceding chest pain palpitations or shortness of breath. No dizziness or lightheadedness. States after the fall he felt generally weak and was unable to stand. Denies any pain at present but has a significant amount of swelling and trouble seeing from his right eye due to severe periorbital hematoma. He has slow bleeding from a small laceration below his eye which has alleviated the pressure and swelling, allowing him to see better. He denies any pain with range of motion and denies any headache. No nausea or vomiting. Denies any pain or injuries elsewhere. Denies any vision or speech changes. No extremity numbness. He is unsure if he had any loss of consciousness but states he was aware that he was falling however unable to catch his fall. ED COURSE: In the emergency department he had an EKG done that showed a paced rhythm with a heart rate of 93, frequent PVCs Heart rate has been erratic ranging from the 80s to the 160s. He remains asymptomatic. Blood pressure stable. He underwent multiple imaging studies includin. CT of the cervical spine showing no acute fracture or malalignment. 2. CT facial bones: Right orbital floor blowout fracture containing herniated fat with mild tethering of the inferior rectus muscle. Extensive right perio rbital contusion and hematoma extending along the right maxillary soft tissues. Extensive debris and hemorrhage seen within the right maxillary sinus. Intact right zygoma. 3. CT brain: Extensive right periorbital soft tissue swelling and likely right orbital floor fracture with no acute posttraumatic intracranial abnormalities present. No acute hemorrhage. 4. Chest x-ray showed no acute intrathoracic abnormality. Labs showed a white cell count of 9.2, hemoglobin 14.8, hematocrit 41.8, plat elets 200, neutrophils 79.2%. Sodium 137, potassium 5, BUN 29, creatinine 1.83, GFR 36, glucose 192, LFTs unremarkable. CK 43. Troponin negative. BNP 203.6. Tetanus booster given in the emergency department. He was also given IV antibiotics with clindamycin. Case discussed with [facility] as well as the trauma team who advised no intervention for the orbital fracture except discontinuation of Plavix. Of note patient had an echo done 04/28/2020 which showed an EF of 50 to 55%. D iastolic function was indeterminate. He had mild concentric left ventricular hypertrophy. Mild TR and mild MR. Mildly dilated left atrium and mitral annular calcification was present. He was noted to have a sclerotic aortic valve but it opened well. PAST MEDICAL HISTORY: 1. CAD, he sees Dr. Montoya 2. Diabetes mellitus 3. Hypertension 4. History of PA x3 5. Chronic anemia 6. History of second-degree block, pacemaker placed 7. Hyperlipidemia 8. Mnire's disease PAST SURGICAL HISTORY: 1. Dual-chamber pacemaker placed, April 2020 2. Adenoidectomy 3. Cholecystectomy 4. Tonsillectomy 5. CABG x2, 2001 and repeat in 2013 SOCIAL HISTORY: Patient lives alone and uses a walker to move around his home. His daughter states he is required less assistance with his walker as of recently. Denies tobacco use or alcohol consumption. No drug use. FAMILY HISTORY: No history of heart disease or strokes ALLERGIES: Tetracycline CURRENT MEDICATIONS: 1. Aspirin 81 mg p.o. daily 2. Lisinopril 3. Plavix 5 mg p.o. daily 4. Ranolazine 500 mg p.o. daily 5. Multivitamin half a tablet p.o. daily 6. Vitamin D3 5000 units p.o. daily 7. Vitamin B-12 tablet p.o. daily 8. Co-Q10 400 mg p.o. daily 9. Ezetimibe 10 mg p.o. at bedtime 10. Tylenol 325 mg p.o. as needed 11. Novolin Surrogate decision maker is his daughter Brigette - Exam General Appearance: NAD, awake alert General - other findings: VS: BP 162/88, HR 94, RR 18, O2 sat 97% on room air, temp 98.4 Eye - other findings: Severe periorbital hematoma of right eye with oozing blood ENT - other findings: small laceration below right eye, with oozing blood Neck: supple, symmetric, no lymphadenopathy Heart: RRR, no murmur, no gallops, normal peripheral pulses Respiratory: CTAB, no wheezes, no rales, no ronchi, normal chest expansion, no tachypnea Gastrointestinal: soft, non-tender, non-distended, normal bowel sounds, no guarding, no rigidity Extremities: no edema Skin: tenting Neurological: cranial nerve grossly intact, normal sensation to touch, no weakness Musculoskeletal: normal tone, normal strength, no muscle wasting Psychiatric: normal affect, normal behavior, A&O x 3 Hospitalist Results - Labs Result Diagrams: 06/23/20 14:44 06/23/20 14:44 Lab results: WBC 9.2 thou/uL (4.8-10.8) 06/23/20 14:44 Hgb 14.8 g/dL (14.0-18.0) 06/23/20 14:44 Hct 41.8 % (42.0-52.0) L 06/23/20 14:44 MCV 92.8 fL (78.0-98.0) 06/23/20 14:44 Plt Count 200 thou/uL (130-400) 06/23/20 14:44 Neutrophils % 79.2 % (42.0-75.0) H 06/23/20 14:44 Sodium 137 mmol/L (136-145) 06/23/20 14:44 Potassium 5.0 mmol/L (3.5-5.1) 06/23/20 14:44 Chloride 102 mmol/L (98-107) 06/23/20 14:44 Carbon Dioxide 24 mmol/L (23-31) 06/23/20 14:44 BUN 29 mg/dL (8.4-25.7) H 06/23/20 14:44 Creatinine 1.83 mg/dL (0.7-1.3) H 06/23/20 14:44 Glucose 182 mg/dL (83-110) H 06/23/20 14:44 Calcium 9.6 mg/dL (7.8-10.44) 06/23/20 14:44 Total Bilirubin 0.7 mg/dL (0.2-1.2) 06/23/20 14:44 AST 14 U/L (5-34) 06/23/20 14:44 ALT 15 U/L (8-55) 06/23/20 14:44 Alkaline Phosphatase 83 U/L (40-110) 06/23/20 14:44 Creatine Kinase 43 U/L (30-200) 06/23/20 14:44 Troponin I 0.026 ng/mL (< 0.028) 06/23/20 14:44 B-Natriuretic Peptide 203.6 pg/mL (0-100) H 06/23/20 14:44 Serum Total Protein 7.8 g/dL (5.8-8.1) 06/23/20 14:44 Albumin 4.6 g/dL (3.4-4.8) 06/23/20 14:44 - Radiology Interpretation CT scan - head Status: report reviewed by me Hospitalist H&P A/P - Problem (1) Collapse Code(s): R55 - SYNCOPE AND COLLAPSE Status: Acute (2) Fracture of right orbital floor Code(s): S02.31XA - FRACTURE OF ORBITAL FLOOR, RIGHT SIDE, INIT Status: Acute (3) Pacemaker Code(s): Z95.0 - PRESENCE OF CARDIAC PACEMAKER Status: Chronic (4) Diabetes mellitus Code(s): E11.9 - TYPE 2 DIABETES MELLITUS WITHOUT COMPLICATIONS Status: Chronic (5) History of second degree heart block Code(s): Z86.79 - PERSONAL HISTORY OF OTHER DISEASES OF THE CIRCULATORY SYSTEM Status: Chronic (6) CAD (coronary artery disease) of artery bypass graft Code(s): I25.810 - ATHEROSCLEROSIS OF CABG W/O ANGINA PECTORIS Status: Chronic (7) Chronic renal disease Code(s): N18.9 - CHRONIC KIDNEY DISEASE, UNSPECIFIED Status: Chronic Qualifiers: Chronic kidney disease stage: unspecified stage Qualified Code(s): N18.9 - Chronic kidney disease, unspecified (8) HLD (hyperlipidemia) Code(s): E78.5 - HYPERLIPIDEMIA, UNSPECIFIED Status: Chronic (9) HTN (hypertension) Code(s): I10 - ESSENTIAL (PRIMARY) HYPERTENSION Status: Chronic - Plan Plan: Patient asymptomatic at present. S/p collapse with severe injury to right eye. CT facial bones confirmed right orbital floor blowout fracture containing herniated fat with mild tethering of the inferior rectus muscle. Extensive right periorbital contusion and hematoma extending along the right maxillary soft tissues. Extensive debris and hemorrhage within the right maxillary sinus. Will admit for further work-up of syncope/collapse Cardiac monitoring Trend troponins Recent echo done 04/2020 (see HPI) Interrogate pacemaker Hold Plavix and continue antibiotics Consult cardiology Carotid US Orthostatic BPs UA/UCx to rule out underlying UTI Gentle hydration, (GFR and creat slightly worse from baseline) Monitor renal function PT/OT consult Falls precaution. Monitor BP Accu-cheks ACHS ISS initiated Ok to start heart healthy/consistent carb diet Resume home medications as appropriate once verified CODE STATUS FULL Case discussed with Dr. Javier who agrees with plan as above.
[2020-06-23] MEDS ORDERED: Acetaminophen 650 MG Suppository PR PRN (18:11)
[2020-06-23] MEDS ORDERED: Acetaminophen 325 MG TAB PO PRN (18:11)
[2020-06-23] MEDS ORDERED: Senokot S 8.6-50 MG TAB PO PRN (18:11)
[2020-06-23] MEDS ORDERED: Sodium Chloride 0.9% 1,000 ML IV SCH (18:15)
[2020-06-23 18:28] LABS: Troponin I 0.029 ng/mL (< 0.028)
[2020-06-23 18:41] LABS: Hemoglobin 14.2 g/dL (14.0-18.0)
[2020-06-23 19:54] VITALS: BP 153/76; TEMP 98.3
[2020-06-23 19:56] VITALS: BMI 28.3
[2020-06-23 21:43] LABS: Troponin I 0.017 ng/mL (< 0.028)
[2020-06-23] MEDS ORDERED: Insulin Regular 300 UNITS/3 ML VIAL SC SCH (22:17)
[2020-06-24 05:29] LABS: SARS-CoV-2 MS2 Positive; SARS-CoV-2 N Gene Negative; SARS-CoV-2 S Gene Negative; SARS-CoV-2 by NAA Not Detected (NotDetected); SARS-CoV-2 orf1ab Negative
[2020-06-24] MEDS ORDERED: NPH, Human Insulin Isophane 300 UNIT/3 ML VIAL SQ SCH (07:30)
== END 2020-06-23 22:25 | disposition left against medical advice (07) ==
LOC: ERS 14:09 → 2NO 17:20
PROVIDERS: ADMIT Internal Medicine; ATTEND Internal Medicine
DX: R55 Syncope and collapse (principal); S02.31XA Fracture of orbital floor, right side, initial encounter for closed fracture; S01.111A Laceration without foreign body of right eyelid and periocular area, initial encounter; E11.9 Type 2 diabetes mellitus without complications; I25.2 Old myocardial infarction; I44.1 Atrioventricular block, second degree; E78.5 Hyperlipidemia, unspecified; H81.09 Meniere's disease, unspecified ear; I25.810 Atherosclerosis of coronary artery bypass graft(s) without angina pectoris; I12.9 Hypertensive chronic kidney disease with stage 1 through stage 4 chronic kidney disease, or unspecified chronic kidney disease; N18.9 Chronic kidney disease, unspecified; Z79.02 Long term (current) use of antithrombotics/antiplatelets; Z79.4 Long term (current) use of insulin; Z79.82 Long term (current) use of aspirin; Z79.899 Other long term (current) drug therapy; Z88.1 Allergy status to other antibiotic agents; Z95.0 Presence of cardiac pacemaker; Z20.828 Contact with and (suspected) exposure to other viral communicable diseases; W19.XXXA Unspecified fall, initial encounter
CPT/HCPCS: 70450; 70486; 71045; 72125; 82550; 82962; 83735; 83880; 84484 ×2; 85014; 85018; 86850; 86900; 86901; 90715; 93005; 96365; 99285; U0003; 36415; 36416; 80053; 84443; 85025; 87635; G0378; J3490